=== PATIENT | female | born 1940 | race Caucasian/White ===

== ENCOUNTER 2020-04-11 11:02 | Inpatient (IN) | payer MEDICARE, OTHER ==
[2020-04-11] MEDS ORDERED: IPRATROPIUM-ALBUTEROL 3 ML NEB INHALATION STA (11:22)
--- NOTE | 2020-04-11 11:27 | ED ---
General Adult HPI - General Chief complaint: Shortness of Breath Stated complaint: SOB Source: patient, EMS, RN notes reviewed, old records reviewed Mode of arrival: EMS Limitations: no limitations - History of Present Illness Initial comments: This is an 79-year-old female who presents emergency Department complaining of difficulty breathing at 3:00 this morning she states she continues to have difficulty breathing. Patient denies any other symptoms at this time. Patient denies any fever chills or cough. Patient denies chest pain or palpitations. Patient denies any lightheadedness or dizziness. Patient denies a previous history of any COPD or congestive heart failure. Patient states he has some swelling in her legs but she always has some always. Patient does not think it's worse than normal. Patient was placed on BiPAP on the way in and so we continued that when she came into the emergency department. Patient states otherwise she feels at her baseline. - Related Data Home Medications Medication Instructions Recorded Confirmed Allopurinol [Zyloprim] 300 mg PO DAILY 04/11/20 04/11/20 Aspirin [Adult Low Dose Aspirin EC] 81 mg PO DAILY 04/11/20 04/11/20 Ergocalciferol [Vitamin D2] 50,000 unit PO Q14D 04/11/20 04/11/20 Ferrous Sulfate [Feosol] 325 mg PO DAILY 04/11/20 04/11/20 Folic Acid 1 mg PO DAILY 04/11/20 04/11/20 Furosemide [Lasix] 20 mg PO BID 04/11/20 04/11/20 Gabapentin [Neurontin] 300 mg PO BID 04/11/20 04/11/20 Lisinopril [Zestril] 10 mg PO DAILY 04/11/20 04/11/20 Lisinopril [Zestril] 20 mg PO HS 04/11/20 04/11/20 Magnesium Oxide 400 mg PO TID 04/11/20 04/11/20 Potassium Chloride ER [K-Dur 10] 10 meq PO DAILY 04/11/20 04/11/20 Sodium Bicarbonate Tab 650 mg PO BID 04/11/20 04/11/20 amLODIPine [Norvasc] 5 mg PO DAILY 04/11/20 04/11/20 glipiZIDE XL [Glucotrol Xl] 10 mg PO AC-BRKFST 04/11/20 04/11/20 glipiZIDE [Glucotrol] 12.5 mg PO HS 04/11/20 04/11/20 Allergies Allergy/AdvReac Type Severity Reaction Status Date / Time No Known Allergies Allergy Verified 04/11/20 13:11 Review of Systems ROS Statement: Those systems with pertinent positive or pertinent negative responses have been documented in the HPI. ROS Other: All systems not noted in ROS Statement are negative. Past Medical History Past Medical History: Unable to Obtain History of Any Multi-Drug Resistant Organisms: None Reported Past Surgical History: Unable to Obtain Smoking Status: Unknown if ever smoked Past Alcohol Use History: None Reported Past Drug Use History: None Reported General Exam - General Exam Comments Initial Comments: GENERAL: Patient is well-developed and well-nourished. Patient is nontoxic and well- hydrated and is in mild distress. ENT: Neck is soft and supple. No significant lymphadenopathy is noted. Oropharynx is clear. Moist mucous membranes. Neck has full range of motion without eliciting any pain. EYES: The sclera were anicteric and conjunctiva were pink and moist. Extraocular movements were intact and pupils were equal round and reactive to light. Eyelids were unremarkable. PULMONARY: Unlabored respirations. Slight bilateral crackles in the bases and some expiratory wheezing. CARDIOVASCULAR: There is a regular rate and rhythm without any murmurs gallops or rubs. ABDOMEN: Soft and nontender with normal bowel sounds. No palpable organomegaly was noted. There is no palpable pulsatile mass. SKIN: Skin is clear with no lesions or rashes and otherwise unremarkable. NEUROLOGIC: Patient is alert and oriented x3. Cranial nerves II through XII are grossly intact. Motor and sensory are also intact. Normal speech, volume and content. Symmetrical smile. MUSCULOSKELETAL: Normal extremities with adequate strength and full range of motion. 1+ edema LYMPHATICS: No significant lymphadenopathy is noted PSYCHIATRIC: Normal psychiatric evaluation. Limitations: no limitations Course Vital Signs 04/11/20 04/11/20 04/11/20 11:03 11:07 11:17 Temperature 98.6 F Pulse Rate 98 90 Respiratory 42 H 33 H 42 H Rate Blood Pressure 186/80 157/67 O2 Sat by Pulse 92 L 93 L Oximetry 04/11/20 04/11/20 04/11/20 11:45 11:57 12:15 Temperature Pulse Rate 78 79 74 Respiratory 16 Rate Blood Pressure 159/69 O2 Sat by Pulse 97 Oximetry 04/11/20 04/11/20 04/11/20 14:06 14:14 14:58 Temperature Pulse Rate 71 Respiratory Rate Blood Pressure O2 Sat by Pulse 94 L 93 L 83 L Oximetry Medical Decision Making - Medical Decision Making EKG shows normal sinus rhythm at 85 bpm LA interval is 170 QRS is 92 QT interval 396 QTC is 471. Patient's EKG shows no ST segment elevation or depression CT shows no PE but it was a poor study. Patient's CT did show congestive heart.. Patient received nitroglycerin paste as well as Lasix. I spoke with Dr. Rick he accepted patient I wrote admitting orders I continued Lasix and Nitropaste on the floor. - Lab Data Result diagrams: 04/11/20 11:15 04/11/20 11:15 Lab Results 04/11/20 04/11/20 04/11/20 Range/Units 11:15 11:15 11:15 WBC 15.6 H (3.8-10.6) k/uL RBC 4.20 (3.80-5.40) m/uL Hgb 12.1 (11.4-16.0) gm/dL Hct 38.5 (34.0-46.0) % MCV 91.6 (80.0-100.0) fL MCH 28.7 (25.0-35.0) pg MCHC 31.3 (31.0-37.0) g/dL RDW 15.8 H (11.5-15.5) % Plt Count 226 (150-450) k/uL Neutrophils % 91 % Lymphocytes % 5 % Monocytes % 3 % Eosinophils % 1 % Basophils % 0 % Neutrophils # 14.2 H (1.3-7.7) k/uL Lymphocytes # 0.8 L (1.0-4.8) k/uL Monocytes # 0.4 (0-1.0) k/uL Eosinophils # 0.1 (0-0.7) k/uL Basophils # 0.0 (0-0.2) k/uL Hypochromasia Marked PT 10.3 (9.0-12.0) sec INR 1.0 (<1.2) APTT 21.8 L (22.0-30.0) sec D-Dimer 1.51 H (<0.60) mg/L FEU Sodium 140 (137-145) mmol/L Potassium 3.8 (3.5-5.1) mmol/L Chloride 108 H (98-107) mmol/L Carbon Dioxide 20 L (22-30) mmol/L Anion Gap 12 mmol/L BUN 21 H (7-17) mg/dL Creatinine 1.04 (0.52-1.04) mg/dL Est GFR (CKD-EPI)AfAm 59 (>60 ml/min/1.73 sqM) Est GFR (CKD-EPI)NonAf 51 (>60 ml/min/1.73 sqM) Glucose 264 H (74-99) mg/dL Plasma Lactic Acid Donny (0.7-2.0) mmol/L Calcium 9.1 (8.4-10.2) mg/dL Magnesium 2.0 (1.6-2.3) mg/dL Total Bilirubin 0.7 (0.2-1.3) mg/dL AST 32 (14-36) U/L ALT 17 (4-34) U/L Alkaline Phosphatase 86 (38-126) U/L Troponin I (0.000-0.034) ng/mL NT-Pro-B Natriuret Pep pg/mL Total Protein 7.4 (6.3-8.2) g/dL Albumin 4.1 (3.5-5.0) g/dL 04/11/20 04/11/20 04/11/20 Range/Units 11:15 11:15 11:15 WBC (3.8-10.6) k/uL RBC (3.80-5.40) m/uL Hgb (11.4-16.0) gm/dL Hct (34.0-46.0) % MCV (80.0-100.0) fL MCH (25.0-35.0) pg MCHC (31.0-37.0) g/dL RDW (11.5-15.5) % Plt Count (150-450) k/uL Neutrophils % % Lymphocytes % % Monocytes % % Eosinophils % % Basophils % % Neutrophils # (1.3-7.7) k/uL Lymphocytes # (1.0-4.8) k/uL Monocytes # (0-1.0) k/uL Eosinophils # (0-0.7) k/uL Basophils # (0-0.2) k/uL Hypochromasia PT (9.0-12.0) sec INR (<1.2) APTT (22.0-30.0) sec D-Dimer (<0.60) mg/L FEU Sodium (137-145) mmol/L Potassium (3.5-5.1) mmol/L Chloride (98-107) mmol/L Carbon Dioxide (22-30) mmol/L Anion Gap mmol/L BUN (7-17) mg/dL Creatinine (0.52-1.04) mg/dL Est GFR (CKD-EPI)AfAm (>60 ml/min/1.73 sqM) Est GFR (CKD-EPI)NonAf (>60 ml/min/1.73 sqM) Glucose (74-99) mg/dL Plasma Lactic Acid Donny 1.8 (0.7-2.0) mmol/L Calcium (8.4-10.2) mg/dL Magnesium (1.6-2.3) mg/dL Total Bilirubin (0.2-1.3) mg/dL AST (14-36) U/L ALT (4-34) U/L Alkaline Phosphatase (38-126) U/L Troponin I 0.059 H* (0.000-0.034) ng/mL NT-Pro-B Natriuret Pep 4400 pg/mL Total Protein (6.3-8.2) g/dL Albumin (3.5-5.0) g/dL Critical Care Time Critical Care Time: Yes Total Critical Care Time: 35 Disposition Clinical Impression: Acute pulmonary edema Disposition: ADMITTED IP TO THIS HOSP Referrals: Rodrigo Gann MD [Primary Care Provider] - 1-2 days Time of Disposition: 15:02
[2020-04-11 11:49] LABS: Basophils % (A) 0 %; Eosinophils # (A) 0.1 k/uL (0-0.7); Eosinophils % (A) 1 %; HCT 38.5 % (34.0-46.0); HGB 12.1 gm/dL (11.4-16.0); Hypochromasia Marked; Lymphocytes # (A) 0.8 k/uL (1.0-4.8); Lymphocytes % (A) 5 %; MCH 28.7 pg (25.0-35.0); MCHC 31.3 g/dL (31.0-37.0); MCV 91.6 fL (80.0-100.0); Mean Platelet Volume 9.9; Monocytes # (A) 0.4 k/uL (0-1.0); Monocytes % (A) 3 %; Neutrophils # (A) 14.2 k/uL (1.3-7.7); Neutrophils % (A) 91 %; Platelet Count 226 k/uL (150-450); RDW 15.8 % (11.5-15.5); WBC 15.6 k/uL (3.8-10.6)
--- NOTE | 2020-04-11 11:50 | XR ---
EXAMINATION TYPE: XR chest 1V DATE OF EXAM: 04/11/2020 COMPARISON: NONE HISTORY: Difficulty in breathing. TECHNIQUE: Single frontal view of the chest is obtained. FINDINGS: The osseous structures are intact. Cardiomegaly is present. There are small bilateral pleu ral effusions. There is increased alveolar and interstitial opacities bilateral mid to lower lungs. N o pneumothorax noted bilaterally IMPRESSION: Would favor CHF exacerbation as there is cardiomegaly with small bilateral pleural effus ions and suspected mild alveolar and interstitial edema, correlate clinically. Underlying bibasilar a cute atelectasis and/or infiltrate noted.
[2020-04-11] MEDS ORDERED: FUROSEMIDE 10 MG/ML 4 ML VIAL IV STA (11:57)
[2020-04-11] MEDS ORDERED: NITROGLYCERIN OINT 1 INCH/GM PACKET TOPICAL STA (11:57)
[2020-04-11 12:05] LABS: Albumin 4.1 g/dL (3.5-5.0); Calcium 9.1 mg/dL (8.4-10.2); Total Bilirubin 0.7 mg/dL (0.2-1.3); Total Protein 7.4 g/dL (6.3-8.2)
[2020-04-11 12:10] LABS: Potassium 3.8 mmol/L (3.5-5.1)
[2020-04-11 12:20] LABS: Partial Thromboplastin Time 21.8 sec (22.0-30.0); Prothrombin Time 10.3 sec (9.0-12.0)
[2020-04-11 12:25] LABS: D-Dimer 1.51 mg/L FEU (<0.60)
--- NOTE | 2020-04-11 14:48 | CT ---
EXAMINATION TYPE: CT chest angio for PE DATE OF EXAM: 04/11/2020 COMPARISON: Chest x-ray earlier today HISTORY: Shortness of breath. CT DLP: 536.2 mGycm. Automated Exposure Control for Dose Reduction was Utilized. CONTRAST: CTA scan of the thorax is performed with IV Contrast, patient injected with 100 mL of Isovue 370, pul monary embolism protocol. MIP Images are created on CT scanner and reviewed. FINDINGS: Exam noticed suboptimal as there was significant respiratory motion artifact degradation. P atient unable to hold breath. LUNGS: There is confirmation of small bilateral pleural effusions with associated compressive atelect asis in the bases. There is central groundglass opacity seen bilaterally. No pneumothorax seen bilate rally. MEDIASTINUM: There is a suboptimal study with heterogeneity and near equal contrast the right and lef t heart systems but no convincing CT evidence for acute pulmonary embolism. There are no greater jerman n 1 cm hilar or mediastinal lymph nodes. No significant pericardial effusion is seen. Cardiomegaly is present. Coronary artery calcification is seen which is noted marked underlying coronary artery di sease. Satisfactory enhancement of the aorta without aneurysm or dissection. OTHER: Scattered calcifications throughout the spleen. Marked fatty-replaced atrophy of the visualize d pancreas. Partial visualization of suspected exophytic cystic lesions in the left kidney. IMPRESSION: Suboptimal study without acute pulmonary embolism. Findings consistent with CHF exacerbat ion fell present as there is cardiomegaly with small bilateral pleural effusions and [id number] central alveolar edema appreciated bilaterally.
[2020-04-11] MEDS: HEPARIN SODIUM,PORCINE 5,000 UNIT/ML 1 ML VIAL SQ SCH ×2 (17:10→23:09)
[2020-04-11 17:11] LABS: Glucose,Whole Blood 167 mg/dL (75-99)
[2020-04-11] MEDS: MAGNESIUM OXIDE 400 MG TAB PO SCH ×2 (17:11→20:56)
[2020-04-11] MEDS: NITROGLYCERIN OINT 1 INCH/GM PACKET TOPICAL SCH ×2 (17:22→20:56)
[2020-04-11 20:39] LABS: Glucose,Whole Blood 229 mg/dL (75-99)
[2020-04-11] MEDS: SODIUM BICARBONATE TAB 650 MG TAB PO SCH (20:56)
[2020-04-11] MEDS: FUROSEMIDE 10 MG/ML 4 ML VIAL IV SCH (20:57)
[2020-04-11] MEDS ORDERED: LISINOPRIL 20 MG TAB PO SCH (21:00)
[2020-04-11 22:03] LABS: Appearance,Urine Clear (Clear); Bilirubin,Urine Negative (Negative); Blood,Urine Negative (Negative); Color,Urine Light Yellow; Glucose,Urine (UA) Negative (Negative); Ketones,Urine Negative (Negative); Leukocyte Esterase,Urine Negative (Negative); Nitrite,Urine Negative (Negative); Protein,Urine Negative (Negative); Specific Gravity,Urine 1.019 (1.001-1.035); Urobilinogen,Urine <2.0 mg/dL (<2.0)
--- NOTE | 2020-04-11 22:40 | P.HPIM ---
History of Present Illness H&P Date: 04/11/20 Chief Complaint: CARLOS Patient is a 79-year-old female with a known history of hypertension, hyperlipidemia, diabetes type 2 [id number], diabetic peripheral neuropathy and osteoarthritis presents to ER with the complaints of worsening shortness of breath started around 3 PM today afternoon. Denied any chest pain. No nausea vomiting or abdominal pain or diarrhea. Denied any recent illnesses. Patient has been having bilateral lower extremity edema. Patient noticed some increasing leg swelling this morning. Was also having some dry cough. No fever no chills. Patient presented to ER with her daughter. Patient was initially tachycardic and tachypneic and hypoxic requiring BiPAP in the ER. Blood pressure was 186/80 on admission.. Chest x-ray showed CHF exacerbation as there is cardiomegaly with small bilateral pleural effusions and suspected mild alveolar and interstitial edema. Correlate clinically. Underlying bibasilar acute atelectasis or infiltrate noted. Patient denies any history of COVID-19 viral exposure. Patient was found to have elevated d-dimer level. CT angiogram of the chest was showed suboptimal study without acute pulmonary embolism. Findings consistent with CHF exacerbation. Laboratory data showed WC 15.6, hemoglobin 12.1, RDW 15.8, absolute lymphocyte count 0.8 Sodium 140, potassium 3.8, chloride 108, BUN 21 creatinine 1.04 Blood sugar is 264 Liver enzymes are not elevated Troponin 0 0.059 and BNP 4400 Urinalysis showed negative for infection. Past Medical History Past Medical History: Diabetes Mellitus, Eye Disorder, Hyperlipidemia, Hypertension, Renal Disease Additional Past Medical History / Comment(s): NIDDM type II, neuropathy bilateral feet, diabetic retinopathy with eye injections, pt recently found to had L lung nodules-being monitored, pt has one underdeveloped kidney, bilateral lower leg/pedal edema, recent R hip pain, bronchitis, diarrhea with certain foods which has increased lately. History of Any Multi-Drug Resistant Organisms: None Reported Past Surgical History: Appendectomy, Cholecystectomy, Hernia Repair, Hysterectomy Additional Past Surgical History / Comment(s): abdominal hernia repair. Past Anesthesia/Blood Transfusion Reactions: No Reported Reaction Smoking Status: Never smoker - Past Family History Father Family Medical History: Congestive Heart Failure (CHF) Mother Family Medical History: Congestive Heart Failure (CHF) Medications and Allergies Home Medications Medication Instructions Recorded Confirmed Type Allopurinol [Zyloprim] 300 mg PO DAILY 04/11/20 04/11/20 History Aspirin [Adult Low Dose Aspirin EC] 81 mg PO DAILY 04/11/20 04/11/20 History Ergocalciferol [Vitamin D2] 50,000 unit PO Q14D 04/11/20 04/11/20 History Ferrous Sulfate [Feosol] 325 mg PO DAILY 04/11/20 04/11/20 History Folic Acid 1 mg PO DAILY 04/11/20 04/11/20 History Furosemide [Lasix] 20 mg PO BID 04/11/20 04/11/20 History Gabapentin [Neurontin] 300 mg PO BID 04/11/20 04/11/20 History Lisinopril [Zestril] 10 mg PO DAILY 04/11/20 04/11/20 History Lisinopril [Zestril] 20 mg PO HS 04/11/20 04/11/20 History Magnesium Oxide 400 mg PO TID 04/11/20 04/11/20 History Potassium Chloride ER [K-Dur 10] 10 meq PO DAILY 04/11/20 04/11/20 History Sodium Bicarbonate Tab 650 mg PO BID 04/11/20 04/11/20 History amLODIPine [Norvasc] 5 mg PO DAILY 04/11/20 04/11/20 History glipiZIDE XL [Glucotrol Xl] 10 mg PO AC-BRKFST 04/11/20 04/11/20 History glipiZIDE [Glucotrol] 12.5 mg PO HS 04/11/20 04/11/20 History Allergies Allergy/AdvReac Type Severity Reaction Status Date / Time No Known Allergies Allergy Verified 04/11/20 13:11 Physical Exam Vitals: Vital Signs Temp Pulse Pulse Resp BP BP Pulse Ox 04/11/20 20:00 98.3 F 76 17 168/63 89 L 04/11/20 16:55 97.5 F L 89 18 140/86 90 L 04/11/20 16:14 69 16 155/91 97 04/11/20 15:13 73 27 H 187/86 95 04/11/20 14:58 83 L 04/11/20 14:14 71 93 L 04/11/20 14:06 94 L 04/11/20 12:15 74 16 159/69 97 04/11/20 11:57 79 04/11/20 11:45 78 04/11/20 11:17 42 H 04/11/20 11:07 90 33 H 157/67 93 L 04/11/20 11:03 98.6 F 98 42 H 186/80 92 L Intake and Output 04/11/20 04/11/20 04/11/20 06:59 14:59 22:59 Intake Total 240 Output Total 200 Balance 40 Intake: Oral 240 Output: Urine 200 Other: Voiding Method Bedside Commode # Voids 1 # Bowel Movements 1 Weight 81.647 kg 81.647 kg Results CBC & Chem 7: 04/11/20 11:15 04/11/20 11:15 Labs: Abnormal Lab Results - Last 24 Hours (Table) 04/11/20 04/11/20 04/11/20 Range/Units 11:15 11:15 11:15 WBC 15.6 H (3.8-10.6) k/uL RDW 15.8 H (11.5-15.5) % Neutrophils # 14.2 H (1.3-7.7) k/uL Lymphocytes # 0.8 L (1.0-4.8) k/uL APTT 21.8 L (22.0-30.0) sec D-Dimer 1.51 H (<0.60) mg/L FEU Chloride 108 H (98-107) mmol/L Carbon Dioxide 20 L (22-30) mmol/L BUN 21 H (7-17) mg/dL Glucose 264 H (74-99) mg/dL POC Glucose (mg/dL) (75-99) mg/dL Troponin I (0.000-0.034) ng/mL 04/11/20 04/11/20 04/11/20 Range/Units 11:15 16:50 20:37 WBC (3.8-10.6) k/uL RDW (11.5-15.5) % Neutrophils # (1.3-7.7) k/uL Lymphocytes # (1.0-4.8) k/uL APTT (22.0-30.0) sec D-Dimer (<0.60) mg/L FEU Chloride (98-107) mmol/L Carbon Dioxide (22-30) mmol/L BUN (7-17) mg/dL Glucose (74-99) mg/dL POC Glucose (mg/dL) 167 H 229 H (75-99) mg/dL Troponin I 0.059 H* (0.000-0.034) ng/mL Thrombosis Risk Factor Assmnt - Choose All That Apply Any of the Below Risk Factors Present?: Yes Each Factor Represents 1 point: Heart failure (<1month), Obesity (BMI >25), Swollen legs (current) Other Risk Factors: Yes Each Risk Factor Represents 3 Points: Age 75 years or older Other congenital or acquired thrombophilia - If yes, enter type in comment: No Thrombosis Risk Factor Assessment Total Risk Factor Score: 6 Thrombosis Risk Factor Assessment Level: High Risk Assessment and Plan Assessment: Acute CHF with evidence of interstitial edema, leg swelling and elevated BNP level. Acute hypoxic respiratory failure secondary to CHF Elevated troponin level likely due to CHF Cardiomegaly Hypertensive urgency Diabetes type 2 [id number] Diabetic neuropathy and retinopathy Recently patient was found to have left lung nodules. Being monitored. Underdevelopment of kidney. Osteoarthritis Hyperlipidemia Obesity with BMI 30.0 Leukocytosis likely reactive. Rule out infection. Elevated d-dimer level with no evidence of pulmonary embolism. Hyperglycemia with uncontrolled diabetes type 2 DVT prophylaxis with heparin subcu Patient will be continued on IV Lasix 40 mg every 8 hourly. Will start on aspirin, metoprolol. Continue with lisinopril as per home dose. Norvasc is on hold. Continue with insulin sliding scale and follow-up closely. Cardiology was consulted. 2D echocardiogram. Further recommendations based on clinical course. Monitor renal function. Time with Patient: Greater than 30
[2020-04-12] MEDS: FUROSEMIDE 10 MG/ML 4 ML VIAL IV SCH ×3 (05:11→20:49)
[2020-04-12 06:09] LABS: Glucose,Whole Blood 117 mg/dL (75-99)
[2020-04-12] MEDS: INSULIN ASPART (NovoLOG) 100 UNIT/ML VIAL SQ SCH ×4 (06:22→21:20)
[2020-04-12 07:41] LABS: Basophils % (A) 0 %; Eosinophils # (A) 0.1 k/uL (0-0.7); Eosinophils % (A) 1 %; HCT 34.7 % (34.0-46.0); HGB 10.6 gm/dL (11.4-16.0); Hypochromasia Slight; Lymphocytes # (A) 1.1 k/uL (1.0-4.8); Lymphocytes % (A) 11 %; MCH 27.5 pg (25.0-35.0); MCHC 30.4 g/dL (31.0-37.0); MCV 90.2 fL (80.0-100.0); Monocytes # (A) 0.7 k/uL (0-1.0); Monocytes % (A) 7 %; Neutrophils # (A) 7.9 k/uL (1.3-7.7); Neutrophils % (A) 79 %; Platelet Count 208 k/uL (150-450); RBC 3.85 m/uL (3.80-5.40); RDW 15.9 % (11.5-15.5); WBC 10.1 k/uL (3.8-10.6)
[2020-04-12 08:33] LABS: Calcium 8.8 mg/dL (8.4-10.2); Potassium 3.1 mmol/L (3.5-5.1)
[2020-04-12] MEDS ORDERED: LISINOPRIL 10 MG TAB PO SCH ×2 (09:00→21:00)
[2020-04-12] MEDS ORDERED: amLODIPine 5 MG TAB PO SCH (09:00)
[2020-04-12] MEDS: NITROGLYCERIN OINT 1 INCH/GM PACKET TOPICAL SCH (09:44)
[2020-04-12] MEDS: ALLOPURINOL 300 MG TAB PO SCH (09:57)
[2020-04-12] MEDS: hydrALAZINE HCL 50 MG TAB PO SCH ×2 (09:57→20:49)
[2020-04-12] MEDS: POTASSIUM CHLORIDE ER 10 MEQ TAB.ER.PRT PO SCH (09:57)
[2020-04-12] MEDS: LISINOPRIL 10 MG TAB PO SCH ×2 (09:57→20:49)
[2020-04-12] MEDS: METOPROLOL TARTRATE 25 MG TAB PO SCH ×2 (09:57→20:49)
[2020-04-12] MEDS: ATORVASTATIN 40 MG TAB PO SCH (09:57)
[2020-04-12] MEDS: SODIUM BICARBONATE TAB 650 MG TAB PO SCH ×2 (09:58→20:49)
[2020-04-12] MEDS: ISOSORBIDE MONONITRATE ER 60 MG TAB.ER.24H PO SCH (09:58)
[2020-04-12] MEDS: ASPIRIN 81 MG PO SCH (09:58)
[2020-04-12] MEDS: HEPARIN SODIUM,PORCINE 5,000 UNIT/ML 1 ML VIAL SQ SCH ×2 (09:58→15:19)
[2020-04-12] MEDS: FOLIC ACID 1 MG TAB PO SCH (09:58)
[2020-04-12] MEDS: MAGNESIUM OXIDE 400 MG TAB PO SCH ×3 (09:58→20:49)
[2020-04-12] MEDS ORDERED: Potassium Replacement Protocol 1 EACH MISC MISCELLANE PRN (11:03)
[2020-04-12 11:29] LABS: Glucose,Whole Blood 229 mg/dL (75-99)
--- NOTE | 2020-04-12 12:09 | CONS ---
CONSULTATION Mrs. Brothers is an 79-year-old female who presented with symptoms of dyspnea. She has a history of chronic dyspnea on exertion, but much worse yesterday, not associated with any discomfort. She had fatigue. She has some peripheral edema, came into the emergency room subsequently admitted with CHF. According to the patient, she has no prior history of documented coronary artery disease or CHF. She has a lung nodule that has been followed by Dr. Gann. She has no dizziness, palpitation. No chest pressure. She has no history of PND or orthopnea. Her current paroxysmal for diabetes, hypertension. Her lipid profile is not available. MEDICATION: At home include glipizide 12.5 mg daily, lisinopril 20 mg daily, aspirin, amlodipine 5 mg daily, allopurinol, Lasix 20 mg twice a day, potassium, iron, and sodium bicarb. REVIEW OF SYSTEMS: RESPIRATORY SYSTEM: She has dyspnea on exertion. No recent wheezing or cough. No history of documented obstructive lung disease. GI SYSTEM: No recent GI bleeding, no peptic ulcer disease. SYSTEM: No dysuria, hematuria. She has a history of renal disease and has been followed by Dr. Elena. NERVOUS SYSTEM: No history of stroke or seizure. PHYSICAL EXAMINATION: She is an 79-year-old female, alert, oriented, in no apparent distress. Blood pressure running in the 180-150 with a heart rate in the 80s. HEAD: Normocephalic. EYES: Sclerae nonicteric. NECK: Good upstroke, no bruit. LUNGS: With a few crackles at the bases. HEART: Regular rate and rhythm. S1, S2. No S3 with systolic murmur, ejection type. No diastolic murmur, no rub. ABDOMEN: Soft, nontender, positive bowel sounds, no organomegaly. EXTREMITIES: +1 edema. LAB DATA: Revealed a hemoglobin of 12.1, BUN and creatinine of 21 and 1.04. NT proBNP of 4400. Troponin of 0.059 and 1.39. Her BUN and creatinine today are 23 and 1.23, potassium 3.1. Her EKG revealed a sinus mechanism with left ventricular hypertrophy, left axis deviation, poor R-wave progression, nonspecific ST-T wave changes. Her chest x-ray is consistent with congestive heart failure. IMPRESSION: 1. Acute episode of congestive heart failure on top of chronic dyspnea on exertion. 2. Probable non ST-segment elevation myocardial infarction. 3. Chronic kidney disease. 4. Hypertension. 5. Hyperlipidemia. 6. Diabetes mellitus. 7. History of lung nodule. RECOMMENDATION: From the cardiac standpoint, I will adjust her medication to optimize her blood pressure control. Will continue IV heparin. She is on IV Lasix. Will follow her renal function closely. I will obtain echocardiogram with Doppler. The patient may require coronary angiography but will await the results for testing and depending on that, further recommendation will be made. Thank you for this consult. Will follow with you. MMODL / IJN: [id number] /
[2020-04-12 12:26] LABS: Hemoglobin A1C 6.2 % (4.0-6.0)
[2020-04-12] MEDS: POTASSIUM CHLORIDE ER 20 MEQ TAB.ER PO SCH ×2 (12:31→15:18)
[2020-04-12 15:44] VITALS: BMI 40.2
[2020-04-12 16:43] LABS: Glucose,Whole Blood 148 mg/dL (75-99)
[2020-04-12 20:53] LABS: Glucose,Whole Blood 130 mg/dL (75-99)
[2020-04-13] MEDS: HEPARIN SODIUM,PORCINE 5,000 UNIT/ML 1 ML VIAL SQ SCH ×4 (01:17→22:37)
[2020-04-13] MEDS: FUROSEMIDE 10 MG/ML 4 ML VIAL IV SCH ×2 (04:45→20:51)
[2020-04-13 06:30] LABS: Glucose,Whole Blood 164 mg/dL (75-99)
[2020-04-13] MEDS: INSULIN ASPART (NovoLOG) 100 UNIT/ML VIAL SQ SCH ×4 (06:47→20:50)
[2020-04-13 08:43] LABS: Calcium 9.4 mg/dL (8.4-10.2); Magnesium 2.1 mg/dL (1.6-2.3); Potassium 3.4 mmol/L (3.5-5.1)
[2020-04-13] MEDS: ASPIRIN 81 MG PO SCH (10:24)
[2020-04-13] MEDS: POTASSIUM CHLORIDE ER 10 MEQ TAB.ER.PRT PO SCH (10:24)
[2020-04-13] MEDS: ALLOPURINOL 300 MG TAB PO SCH (10:24)
[2020-04-13] MEDS: ATORVASTATIN 40 MG TAB PO SCH (10:24)
[2020-04-13] MEDS: CARVEDILOL 12.5 MG TAB PO SCH ×2 (10:24→15:50)
[2020-04-13] MEDS: FOLIC ACID 1 MG TAB PO SCH (10:24)
[2020-04-13] MEDS: SODIUM BICARBONATE TAB 650 MG TAB PO SCH ×2 (10:24→20:49)
[2020-04-13] MEDS: ISOSORBIDE MONONITRATE ER 60 MG TAB.ER.24H PO SCH (10:24)
[2020-04-13] MEDS: LISINOPRIL 10 MG TAB PO SCH ×2 (10:25→20:50)
[2020-04-13] MEDS: METOPROLOL TARTRATE 25 MG TAB PO SCH (10:25)
[2020-04-13] MEDS: MAGNESIUM OXIDE 400 MG TAB PO SCH ×3 (10:25→20:50)
[2020-04-13] MEDS: hydrALAZINE HCL 50 MG TAB PO SCH ×3 (10:26→22:37)
[2020-04-13] MEDS: POTASSIUM CHLORIDE ER 20 MEQ TAB.ER PO SCH ×2 (10:36→12:06)
--- NOTE | 2020-04-13 10:51 | PN ---
PROGRESS NOTE Mrs. Brothers is an 79-year-old female who presented with an acute episode of dyspnea and had evidence to suggest congestive heart failure. She continues to be dyspneic today, but feeling slightly better. She denies any chest pain, no palpitation. She denies any nausea. She continues to be at this point on aspirin once a day, Lipitor 40 mg daily, Lasix 40 mg IV q.8 hours, isosorbide mononitrate 60 mg daily, Zestril 10 mg twice a day, metoprolol tartrate 25 mg twice a day, and sodium bicarb. PHYSICAL EXAMINATION: Blood pressure running in the 160s with a heart rate in 70s. LUNGS: A few crackles at the bases. HEART: Regular rate and rhythm, S1, S2. No S3 with systolic murmur, no diastolic murmur, no rub. ABDOMEN: Soft, obese, nontender. EXTREMITIES: Trace to 1+ edema. LAB DATA: Revealed BUN and creatinine 25 and 1.29, potassium 3.4. IMPRESSION: 1. Symptoms of congestive heart failure. Her systolic function is unknown. 2. Hypertension. 3. Worsening renal function, could be related to the diuresis. 4. Probable non ST-segment elevation myocardial infarction. 5. History of diabetes. 6. Hyperlipidemia. 7. History of lung nodules. RECOMMENDATION: I will cut down the dose of her IV Lasix. I will add hydralazine and nitrate to her regimen. I will review the results for echocardiogram and follow her renal function. Patient would require coronary angiography but the timing depends on her progress and her symptoms and her renal function. I have discussed with her those findings and she is in full understanding and agreement. MMODL / IJN: [id number] /
[2020-04-13 11:33] LABS: Glucose,Whole Blood 180 mg/dL (75-99)
[2020-04-13 14:43] LABS: HCT 35.7 % (34.0-46.0); Hypochromasia Marked; MCH 28.8 pg (25.0-35.0); MCHC 30.8 g/dL (31.0-37.0); MCV 93.6 fL (80.0-100.0); Mean Platelet Volume 12.5; RBC 3.82 m/uL (3.80-5.40); RDW 15.9 % (11.5-15.5); WBC 11.3 k/uL (3.8-10.6)
[2020-04-13 15:10] LABS: Platelet Count 217 k/uL (150-450)
[2020-04-13 16:35] LABS: Glucose,Whole Blood 164 mg/dL (75-99)
[2020-04-13 20:45] LABS: Glucose,Whole Blood 192 mg/dL (75-99)
[2020-04-14 06:34] LABS: Glucose,Whole Blood 130 mg/dL (75-99)
[2020-04-14] MEDS: INSULIN ASPART (NovoLOG) 100 UNIT/ML VIAL SQ SCH ×4 (06:34→20:32)
[2020-04-14] MEDS: CARVEDILOL 12.5 MG TAB PO SCH ×2 (06:35→17:25)
[2020-04-14 07:17] LABS: Calcium 8.8 mg/dL (8.4-10.2); Potassium 3.6 mmol/L (3.5-5.1)
[2020-04-14] MEDS ORDERED: POTASSIUM CHLORIDE ER 20 MEQ TAB.ER PO SCH (08:00)
[2020-04-14] MEDS: HEPARIN SODIUM,PORCINE 5,000 UNIT/ML 1 ML VIAL SQ SCH ×3 (08:47→22:53)
[2020-04-14] MEDS: FUROSEMIDE 10 MG/ML 4 ML VIAL IV SCH (08:47)
[2020-04-14] MEDS: SODIUM BICARBONATE TAB 650 MG TAB PO SCH ×2 (08:49→20:32)
[2020-04-14] MEDS: FOLIC ACID 1 MG TAB PO SCH (08:50)
[2020-04-14] MEDS: ATORVASTATIN 40 MG TAB PO SCH (08:50)
[2020-04-14] MEDS: MAGNESIUM OXIDE 400 MG TAB PO SCH ×3 (08:50→20:32)
[2020-04-14] MEDS: LISINOPRIL 10 MG TAB PO SCH ×2 (08:50→20:32)
[2020-04-14] MEDS: POTASSIUM CHLORIDE ER 10 MEQ TAB.ER.PRT PO SCH (08:50)
[2020-04-14] MEDS: hydrALAZINE HCL 50 MG TAB PO SCH ×3 (08:50→20:32)
[2020-04-14] MEDS: ASPIRIN 81 MG PO SCH (08:50)
[2020-04-14] MEDS: ISOSORBIDE MONONITRATE ER 60 MG TAB.ER.24H PO SCH (08:50)
[2020-04-14] MEDS: ALLOPURINOL 300 MG TAB PO SCH (08:50)
--- NOTE | 2020-04-14 11:09 | P.PN ---
Subjective Progress Note Date: 04/12/20 Patient is a 79-year-old female with a known history of hypertension, hyperlipidemia, diabetes type 2 [id number], diabetic peripheral neuropathy and osteoarthritis presents to ER with the complaints of worsening shortness of breath started around 3 PM today afternoon. Denied any chest pain. No nausea vomiting or abdominal pain or diarrhea. Denied any recent illnesses. Patient has been having bilateral lower extremity edema. Patient noticed some increasing leg swelling this morning. Was also having some dry cough. No fever no chills. Patient presented to ER with her daughter. Patient was initially tachycardic and tachypneic and hypoxic requiring BiPAP in the ER. Blood pressure was 186/80 on admission.. Chest x-ray showed CHF exacerbation as there is cardiomegaly with small b ilateral pleural effusions and suspected mild alveolar and interstitial edema. Correlate clinically. Underlying bibasilar acute atelectasis or infiltrate noted. Patient denies any history of COVID-19 viral exposure. Patient was found to have elevated d-dimer level. CT angiogram of the chest was showed suboptimal study without acute pulmonary embolism. Findings consistent with CHF exacerbation. Laboratory data showed WC 15.6, hemoglobin 12.1, RDW 15.8, absolute lymphocyte count 0.8 Sodium 140, potassium 3.8, chloride 108, BUN 21 creatinine 1.04 Blood sugar is 264 Liver enzymes are not elevated Troponin 0 0.059 and BNP 4400 Urinalysis showed negative for infection. 04/12/2020 Patient is currently lying in the bed comfortable. Currently on oxygen via nasal cannula 2 L. Breathing status is better. Patient is being continued on IV diuresis. 2-D echo cardiac was ordered. Cardiology is planning for cardiac catheterization evening and further workup. Patient denied any, soft chest pain. No nausea vomiting or abdominal pain or diarrhea. No fever no chills. No cough or production. current medications reviewed. Objective - Vital Signs Vital signs: Vital Signs Temp 98.6 F 04/12/20 15:14 Pulse 66 04/12/20 15:16 Resp 20 04/12/20 15:16 BP 163/69 04/12/20 15:14 Pulse Ox 96 04/12/20 15:14 Intake & Output 04/11/20 04/12/20 04/12/20 18:59 06:59 18:59 Intake Total 240 1040 Output Total 200 1300 Balance 40 -1300 1040 Weight 81.647 kg 90.4 kg Intake: IV 20 Invasive Line 1 20 Oral 240 1020 Output: Urine 200 1300 Other: Voiding Method Bedside Commode Bedside Commode Bedside Commode # Voids 1 3 # Bowel Movements 1 1 - Exam PHYSICAL EXAMINATION: Patient is lying in the bed comfortably, no acute distress, awake alert and oriented.. HEENT: Normocephalic. Neck is supple. Pupils reactive. Nostrils clear. Oral cavity is moist. Ears reveal no drainage. Neck reveals no JVD, carotid bruits, or thyromegaly. CHEST EXAMINATION: Trachea is central. Symmetrical expansion. Minimal basilar crackles. No wheezing no rhonchi Lung gutierrez clear to auscultation and percussion. CARDIAC: Normal S1, S2 with no gallops. No murmurs ABDOMEN: Soft. Bowel sounds normal. No organomegaly. No abdominal bruits. Extremities: Trace bilateral pedal reveal no edema. No clubbing or cyanosis Neurologically awake, alert, oriented x3 with well-coordinated movements. No focal deficits noted Skin: No rash or skin lesions. Psychiatric: Coperative. Nonsuicidal Musculoskeletal: No joint swelling or deformity. Normal range of motion. - Labs CBC & Chem 7: 04/13/20 07:36 04/14/20 06:29 Labs: Abnormal Lab Results - Last 24 Hours (Table) 04/11/20 04/11/20 04/12/20 Range/Units 16:50 20:37 06:07 Hgb (11.4-16.0) gm/dL MCHC (31.0-37.0) g/dL RDW (11.5-15.5) % Neutrophils # (1.3-7.7) k/uL Potassium (3.5-5.1) mmol/L Chloride (98-107) mmol/L BUN (7-17) mg/dL Creatinine (0.52-1.04) mg/dL Glucose (74-99) mg/dL POC Glucose (mg/dL) 167 H 229 H 117 H (75-99) mg/dL Hemoglobin A1c (4.0-6.0) % Troponin I (0.000-0.034) ng/mL LDL Cholesterol, Calc (0-99) mg/dL 04/12/20 04/12/20 04/12/20 Range/Units 07:17 07:17 07:17 Hgb 10.6 L (11.4-16.0) gm/dL MCHC 30.4 L (31.0-37.0) g/dL RDW 15.9 H (11.5-15.5) % Neutrophils # 7.9 H (1.3-7.7) k/uL Potassium 3.1 L (3.5-5.1) mmol/L Chloride 108 H (98-107) mmol/L BUN 23 H (7-17) mg/dL Creatinine 1.23 H (0.52-1.04) mg/dL Glucose 126 H (74-99) mg/dL POC Glucose (mg/dL) (75-99) mg/dL Hemoglobin A1c (4.0-6.0) % Troponin I 1.390 H* (0.000-0.034) ng/mL LDL Cholesterol, Calc 120 H (0-99) mg/dL 04/12/20 04/12/20 Range/Units 07:17 11:27 Hgb (11.4-16.0) gm/dL MCHC (31.0-37.0) g/dL RDW (11.5-15.5) % Neutrophils # (1.3-7.7) k/uL Potassium (3.5-5.1) mmol/L Chloride (98-107) mmol/L BUN (7-17) mg/dL Creatinine (0.52-1.04) mg/dL Glucose (74-99) mg/dL POC Glucose (mg/dL) 229 H (75-99) mg/dL Hemoglobin A1c 6.2 H (4.0-6.0) % Troponin I (0.000-0.034) ng/mL LDL Cholesterol, Calc (0-99) mg/dL Assessment and Plan Assessment: Acute CHF with evidence of interstitial edema, leg swelling and elevated BNP level. Acute hypoxic respiratory failure secondary to CHF Elevated troponin level likely due to CHF. Possible non-ST elevated CO Cardiomegaly Hypertensive urgency Diabetes type 2 [id number] Diabetic neuropathy and retinopathy Recently patient was found to have left lung nodules. Being monitored. Underdevelopment of kidney. Osteoarthritis Hyperlipidemia Obesity with BMI 30.0 Leukocytosis likely reactive. Rule out infection. Elevated d-dimer level with no evidence of pulmonary embolism. Hyperglycemia with uncontrolled diabetes type 2 DVT prophylaxis with heparin subcu Patient will be continued on IV Lasix 40 mg every 8 hourly. Started on aspirin, metoprolol. Continue with lisinopril as per home dose. Continue with insulin sliding scale and follow-up closely. Cardiology was consulted. 2D echocardiogram was ordered. Further recommendations based on clinical course. Monitor renal function. Cardiac standpoint Patient depending on further workup. Time with Patient: Greater than 30
[2020-04-14 12:24] LABS: Glucose,Whole Blood 164 mg/dL (75-99)
--- NOTE | 2020-04-14 14:52 | P.PN ---
Subjective Progress Note Date: 04/14/20 History of present illness: This is an 79-year-old female. She presented with acute episode of dyspnea and evidence of heart failure. She has been on Lasix 40 mg IV every 8 hours as well as Imdur 60 mg daily, lisinopril 10 mg twice daily, metoprolol tartrate 25 mg twice daily, sodium bicarb, Lipitor. Hydralazine and Imdur were added yesterday. Patient has had significant worsening of her creatinine overnight to a creatinine of 1.85, BUN of 33. C. difficile toxin came back negative. The patient has been afebrile, blood pressure 125/70, pulse ox 94% on room air, heart rate in the 50s and 60s. Echocardiogram report is pending Physical examination: Gen: This is an 79-year-old female. Patient is resting comfortably in no acute distress. HEENT: Head is atraumatic, normocephalic. Pupils equal, round. Sclerae is anicteric. LUNGS: Clear to auscultation. No wheezes or rhonchi. No intercostal retractions. HEART: Regular rate and rhythm. Systolic murmur. ABDOMEN: Soft. Bowel sounds are present. No masses. No tenderness. EXTREMITIES: Trace pedal edema. No calf tenderness. NEUROLOGICAL: Patient is awake, alert and oriented x3. Cranial nerves 2 through 12 are grossly intact. Assessment: Acute heart failure, most likely systolic, awaiting echocardiogram Hypertension Acute kidney injury with chronic kidney disease stage III Probable non-ST elevated myocardial infarction Diabetes mellitus type 2 Hyperlipidemia History of lung nodules Plan: Transition Lasix to 40 mg oral twice daily Continue aspirin 81 mg daily, Lipitor 40 mg daily, Coreg 12.5 mg twice daily, hy dralazine 50 mg 3 times daily, Imdur 60 mg daily, lisinopril 10 mg twice daily Continue sodium bicarb Repeat BMP in the morning Obtain echocardiogram report Coronary angiograph V depending on her symptoms and renal function. Nurse practitioner note has been reviewed, I agree with documented findings and plan of care. Patient was seen and examined. Objective - Vital Signs Vital signs: Vital Signs Temp 97.3 F L 04/14/20 08:00 Pulse 54 L 04/14/20 08:00 Resp 18 04/14/20 08:00 BP 124/54 04/14/20 08:00 Pulse Ox 97 04/14/20 08:00 Intake & Output 04/13/20 04/14/20 04/14/20 18:59 06:59 18:59 Intake Total 1076 20 120 Output Total 250 1150 Balance 826 -1130 120 Weight 89 kg Intake: IV 10 20 Invasive Line 2 10 20 Oral 1066 120 Output: Urine 250 1150 Other: Voiding Method Diaper Diaper Diaper # Voids 1 2 # Bowel Movements 1 2 - Labs CBC & Chem 7: 04/13/20 07:36 04/14/20 06:29 Labs: Abnormal Lab Results - Last 24 Hours (Table) 04/13/20 04/13/20 04/13/20 Range/Units 07:36 16:32 20:44 WBC 11.3 H (3.8-10.6) k/uL Hgb 11.0 L (11.4-16.0) gm/dL MCHC 30.8 L (31.0-37.0) g/dL RDW 15.9 H (11.5-15.5) % BUN (7-17) mg/dL Creatinine (0.52-1.04) mg/dL Glucose (74-99) mg/dL POC Glucose (mg/dL) 164 H 192 H (75-99) mg/dL 04/14/20 04/14/20 Range/Units 06:29 06:33 WBC (3.8-10.6) k/uL Hgb (11.4-16.0) gm/dL MCHC (31.0-37.0) g/dL RDW (11.5-15.5) % BUN 33 H (7-17) mg/dL Creatinine 1.85 H (0.52-1.04) mg/dL Glucose 115 H (74-99) mg/dL POC Glucose (mg/dL) 130 H (75-99) mg/dL Microbiology - Last 24 Hours (Table) 04/11/20 13:18 Blood Culture - Preliminary Blood No Growth after 48 hours
[2020-04-14] MEDS: FUROSEMIDE 40 MG TAB PO SCH (15:47)
[2020-04-14 16:46] LABS: Glucose,Whole Blood 181 mg/dL (75-99)
[2020-04-14 20:24] LABS: Glucose,Whole Blood 202 mg/dL (75-99)
--- NOTE | 2020-04-14 23:34 | P.PN ---
Subjective Progress Note Date: 04/13/20 Principal diagnosis: Acute CHF Possibly acute non-ST NE Patient is a 79-year-old female with a known history of hypertension, hyperlipidemia, diabetes type 2 [id number], diabetic peripheral neuropathy and osteoarthritis presents to ER with the complaints of worsening shortness of breath started around 3 PM today afternoon. Denied any chest pain. No nausea vomiting or abdominal pain or diarrhea. Denied any recent illnesses. Patient has been having bilateral lower extremity edema. Patient noticed some increasing leg swelling this morning. Was also having some dry cough. No fever no chills. Patient presented to ER with her daughter. Patient was initially tachycardic and tachypneic and hypoxic requiring BiPAP in the ER. Blood pressure was 186/80 on admission.. Chest x-ray showed CHF exacerbation as there is cardiomegaly with small bilateral pleural effusions and suspected mild alveolar and interstitial edema. Correlate clinically. Underlying bibasilar acute atelectasis or infiltrate noted. Patient denies any history of COVID-19 viral exposure. Patient was found to have elevated d-dimer level. CT angiogram of the chest was showed suboptimal study without acute pulmonary embolism. Findings consistent with CHF exacerbation. Laboratory data showed WC 15.6, hemoglobin 12.1, RDW 15.8, absolute lymphocyte count 0.8 Sodium 140, potassium 3.8, chloride 108, BUN 21 creatinine 1.04 Blood sugar is 264 Liver enzymes are not elevated Troponin 0 0.059 and BNP 4400 Urinalysis showed negative for infection. 04/12/2020 Patient is currently lying in the bed comfortable. Currently on oxygen via nasal cannula 2 L. Breathing status is better. Patient is being continued on IV diuresis. 2-D echo cardiac was ordered. Cardiology is planning for cardiac catheterization evening and further workup. Patient denied any, soft chest pain. No nausea vomiting or abdominal pain or diarrhea. No fever no chills. No cough or production. 04/13/2020 Patient states that her breathing is better. Oxygen via nasal cannula is being tapered off to room air. No complaints of chest pain. Slightly increased creatinine level two 1.29 today. Cardiology is considering cardiac catheterization. 2D echocardiogram report pending. Cardiology on board. Denies any chest pain. No fever no chills. No cough or sputum reduction. current medications reviewed. Objective - Vital Signs Vital signs: Vital Signs Temp 98.0 F 04/13/20 20:00 Pulse 68 04/13/20 20:00 Resp 18 04/13/20 20:00 BP 138/57 04/13/20 20:00 Pulse Ox 95 04/13/20 20:00 Intake & Output 04/13/20 04/13/20 04/14/20 06:59 18:59 06:59 Intake Total 1076 10 Output Total 1500 250 250 Balance -1500 826 -240 Weight 89.5 kg Intake: IV 10 10 Invasive Line 2 10 10 Oral 1066 Output: Urine 800 250 250 Urine/Stool Mix 700 Other: Voiding Method Diaper Diaper Diaper # Voids 1 # Bowel Movements 1 - Exam PHYSICAL EXAMINATION: Patient is lying in the bed comfortably, no acute distress, awake alert and oriented.. HEENT: Normocephalic. Neck is supple. Pupils reactive. Nostrils clear. Oral cavity is moist. Ears reveal no drainage. Neck reveals no JVD, carotid bruits, or thyromegaly. CHEST EXAMINATION: Trachea is central. Symmetrical expansion. Minimal basilar crackles. No wheezing no rhonchi Lung gutierrez clear to auscultation and percussion. CARDIAC: Normal S1, S2 with no gallops. No murmurs ABDOMEN: Soft. Bowel sounds normal. No organomegaly. No abdominal bruits. Extremities: no edema. No clubbing or cyanosis Neurologically awake, alert, oriented x3 with well-coordinated movements. No focal deficits noted Skin: No rash or skin lesions. Psychiatric: Coperative. Nonsuicidal Musculoskeletal: No joint swelling or deformity. Normal range of motion. - Labs CBC & Chem 7: 04/13/20 07:36 04/14/20 06:29 Labs: Abnormal Lab Results - Last 24 Hours (Table) 04/13/20 04/13/20 04/13/20 Range/Units 06:27 07:36 07:36 WBC 11.3 H (3.8-10.6) k/uL Hgb 11.0 L (11.4-16.0) gm/dL MCHC 30.8 L (31.0-37.0) g/dL RDW 15.9 H (11.5-15.5) % Potassium 3.4 L (3.5-5.1) mmol/L BUN 25 H (7-17) mg/dL Creatinine 1.29 H (0.52-1.04) mg/dL Glucose 137 H (74-99) mg/dL POC Glucose (mg/dL) 164 H (75-99) mg/dL 04/13/20 04/13/20 04/13/20 Range/Units 11:31 16:32 20:44 WBC (3.8-10.6) k/uL Hgb (11.4-16.0) gm/dL MCHC (31.0-37.0) g/dL RDW (11.5-15.5) % Potassium (3.5-5.1) mmol/L BUN (7-17) mg/dL Creatinine (0.52-1.04) mg/dL Glucose (74-99) mg/dL POC Glucose (mg/dL) 180 H 164 H 192 H (75-99) mg/dL Microbiology - Last 24 Hours (Table) 04/11/20 13:18 Blood Culture - Preliminary Blood No Growth after 48 hours Assessment and Plan Assessment: Acute CHF with evidence of interstitial edema, leg swelling and elevated BNP level. Acute hypoxic respiratory failure secondary to CHF Elevated troponin level likely due to CHF. Possible non-ST elevated NE Cardiomegaly Hypertensive urgency Diabetes type 2 [id number] Diabetic neuropathy and retinopathy Recently patient was found to have left lung nodules. Being monitored. Underdevelopment of kidney. Osteoarthritis Hyperlipidemia Obesity with BMI 30.0 Leukocytosis likely reactive. Rule out infection. Elevated d-dimer level with no evidence of pulmonary embolism. Hyperglycemia with uncontrolled diabetes type 2 DVT prophylaxis with heparin subcu Patient will be continued on IV Lasix 40 mg every 12 hourly. Started on aspirin, metoprolol. Continue with lisinopril as per home dose. Continue with insulin sliding scale and follow-up closely. Cardiology is following. 2D echocardiogram was ordered. Further recommendations based on clinical course. Monitor renal function. Cardiac standpoint Patient depending on further workup. Time with Patient: Greater than 30
[2020-04-15 06:08] LABS: Glucose,Whole Blood 133 mg/dL (75-99)
[2020-04-15] MEDS: INSULIN ASPART (NovoLOG) 100 UNIT/ML VIAL SQ SCH ×4 (06:17→21:02)
[2020-04-15 07:18] LABS: Calcium 8.8 mg/dL (8.4-10.2); Potassium 3.6 mmol/L (3.5-5.1)
[2020-04-15] MEDS: ASPIRIN 81 MG PO SCH (10:01)
[2020-04-15] MEDS: SODIUM BICARBONATE TAB 650 MG TAB PO SCH ×2 (10:01→21:02)
[2020-04-15] MEDS: HEPARIN SODIUM,PORCINE 5,000 UNIT/ML 1 ML VIAL SQ SCH ×3 (10:01→23:42)
[2020-04-15] MEDS: MAGNESIUM OXIDE 400 MG TAB PO SCH ×3 (10:01→21:01)
[2020-04-15] MEDS: FOLIC ACID 1 MG TAB PO SCH (10:02)
[2020-04-15] MEDS: POTASSIUM CHLORIDE ER 10 MEQ TAB.ER.PRT PO SCH (10:02)
[2020-04-15] MEDS: ATORVASTATIN 40 MG TAB PO SCH (10:02)
[2020-04-15] MEDS: LISINOPRIL 10 MG TAB PO SCH (10:02)
[2020-04-15] MEDS: ALLOPURINOL 300 MG TAB PO SCH (10:02)
[2020-04-15] MEDS: FUROSEMIDE 40 MG TAB PO SCH (10:02)
[2020-04-15] MEDS: hydrALAZINE HCL 50 MG TAB PO SCH ×3 (10:02→21:01)
[2020-04-15] MEDS: ISOSORBIDE MONONITRATE ER 60 MG TAB.ER.24H PO SCH (10:03)
[2020-04-15 11:49] LABS: Glucose,Whole Blood 174 mg/dL (75-99)
--- NOTE | 2020-04-15 13:02 | P.PN ---
Subjective Progress Note Date: 04/15/20 History of present illness: This is an 79-year-old female. She presented with acute episode of dyspnea and evidence of heart failure. She has been on Lasix 40 mg IV every 8 hours as well as Imdur 60 mg daily, lisinopril 10 mg twice daily, metoprolol tartrate 25 mg twice daily, sodium bicarb, Lipitor. Hydralazine and Imdur were added yesterday. Patient has had significant worsening of her creatinine overnight to a creatinine of 1.85, BUN of 33. C. difficile toxin came back negative. The patient has been afebrile, blood pressure 125/70, pulse ox 94% on room air, heart rate in the 50s and 60s. Echocardiogram report is pending. 04/15: Patient states that she is feeling well today and is anxious to go home. Her heart rate has been in the 50s and 60s, blood pressure 144/56, pulse ox 97% on room air. The patient is having worsening of her renal function with BUN of 40 and creatinine of 2.4 to and Lasix and lisinopril will be held for now. Physical examination: Gen: This is an 79-year-old female. Patient is resting comfortably in no acute distress. HEENT: Head is atraumatic, normocephalic. Pupils equal, round. Sclerae is anicteric. LUNGS: Clear to auscultation. No wheezes or rhonchi. No intercostal retractions. HEART: Regular rate and rhythm. Systolic murmur. ABDOMEN: Soft. Bowel sounds are present. No masses. No tenderness. EXTREMITIES: Trace pedal edema. No calf tenderness. NEUROLOGICAL: Patient is awake, alert and oriented x3. Cranial nerves 2 through 12 are grossly intact. Assessment: Acute heart failure, most likely systolic, awaiting echocardiogram Hypertension Acute kidney injury with chronic kidney disease stage III Probable non-ST elevated myocardial infarction Diabetes mellitus type 2 Hyperlipidemia History of lung nodules Plan: Discontinue Lasix and lisinopril due to acute kidney injury and worsening renal function Continue aspirin 81 mg daily, Lipitor 40 mg daily, Coreg 12.5 mg twice daily, Imdur 60 mg daily Continue sodium bicarb Repeat BMP in the morning Obtain echocardiogram report Coronary angiography depending on her symptoms and renal function most likely to be performed at a later time Recommend nephrology consult Further recommendations to follow based upon clinical course. Nurse practitioner note has been reviewed, I agree with documented findings and plan of care. Patient was seen and examined. Objective - Vital Signs Vital signs: Vital Signs Temp 98.0 F 04/15/20 04:00 Pulse 61 04/15/20 04:00 Resp 16 04/15/20 04:00 BP 142/59 04/15/20 04:00 Pulse Ox 95 04/15/20 04:00 Intake & Output 04/14/20 04/15/20 04/15/20 18:59 06:59 18:59 Intake Total 540 100 Output Total 100 Balance 540 -100 100 Weight 89.4 kg Intake: Oral 540 100 Output: Urine 100 Other: Voiding Method Diaper Diaper # Voids 0 1 # Bowel Movements 1 1 - Labs CBC & Chem 7: 04/13/20 07:36 04/15/20 06:13 Labs: Abnormal Lab Results - Last 24 Hours (Table) 04/14/20 04/14/20 04/14/20 Range/Units 12:22 16:44 20:23 BUN (7-17) mg/dL Creatinine (0.52-1.04) mg/dL Glucose (74-99) mg/dL POC Glucose (mg/dL) 164 H 181 H 202 H (75-99) mg/dL 04/15/20 04/15/20 Range/Units 06:07 06:13 BUN 40 H (7-17) mg/dL Creatinine 2.42 H (0.52-1.04) mg/dL Glucose 114 H (74-99) mg/dL POC Glucose (mg/dL) 133 H (75-99) mg/dL Microbiology - Last 24 Hours (Table) 04/11/20 13:18 Blood Culture - Preliminary Blood No Growth after 72 hours
[2020-04-15 16:33] LABS: Glucose,Whole Blood 150 mg/dL (75-99)
[2020-04-15 20:54] LABS: Glucose,Whole Blood 192 mg/dL (75-99)
--- NOTE | 2020-04-16 01:28 | P.PN ---
Subjective Progress Note Date: 04/14/20 Principal diagnosis: Acute CHF Possibly acute non-ST PR Patient is a 79-year-old female with a known history of hypertension, hyperlipidemia, diabetes type 2 [id number], diabetic peripheral neuropathy and osteoarthritis presents to ER with the complaints of worsening shortness of breath started around 3 PM today afternoon. Denied any chest pain. No nausea vomiting or abdominal pain or diarrhea. Denied any recent illnesses. Patient has been having bilateral lower extremity edema. Patient noticed some increasing leg swelling this morning. Was also having some dry cough. No fever no chills. Patient presented to ER with her daughter. Patient was initially tachycardic and tachypneic and hypoxic requiring BiPAP in the ER. Blood pressure was 186/80 on admission.. Chest x-ray showed CHF exacerbation as there is cardiomegaly with small bilateral pleural effusions and suspected mild alveolar and interstitial edema. Correlate clinically. Underlying bibasilar acute atelectasis or infiltrate noted. Patient denies any history of COVID-19 viral exposure. Patient was found to have elevated d-dimer level. CT angiogram of the chest was showed suboptimal study without acute pulmonary embolism. Findings consistent with CHF exacerbation. Laboratory data showed WC 15.6, hemoglobin 12.1, RDW 15.8, absolute lymphocyte count 0.8 Sodium 140, potassium 3.8, chloride 108, BUN 21 creatinine 1.04 Blood sugar is 264 Liver enzymes are not elevated Troponin 0 0.059 and BNP 4400 Urinalysis showed negative for infection. 04/12/2020 Patient is currently lying in the bed comfortable. Currently on oxygen via nasal cannula 2 L. Breathing status is better. Patient is being continued on IV diuresis. 2-D echo cardiac was ordered. Cardiology is planning for cardiac catheterization evening and further workup. Patient denied any, soft chest pain. No nausea vomiting or abdominal pain or diarrhea. No fever no chills. No cough or production. 04/13/2020 Patient states that her breathing is better. Oxygen via nasal cannula is being tapered off to room air. No complaints of chest pain. Slightly increased creatinine level two 1.29 today. Cardiology is considering cardiac catheterization. 2D echocardiogram report pending. Cardiology on board. Denies any chest pain. No fever no chills. No cough or sputum reduction. 04/14/2020 Patient is currently sitting in the chair comfortably. Denied any complaints of chest pain or shortness of breath. No nausea vomiting abdominal pain or diarrhea. Tolerating oral diet. Patient is being continued on IV diuresis is to be changed to Lasix by mouth. Cardiology is following. Creatinine level increased to 1.85 today. Patient does have good urine output otherwise. Denies any complaints of dysuria or hematuria. current medications reviewed. Objective - Vital Signs Vital signs: Vital Signs Temp 97 F L 04/14/20 16:00 Pulse 57 L 04/14/20 16:00 Resp 18 04/14/20 16:00 BP 120/61 04/14/20 16:00 Pulse Ox 95 04/14/20 16:10 Intake & Output 04/13/20 04/14/20 04/14/20 18:59 06:59 18:59 Intake Total 1076 20 540 Output Total 250 1150 Balance 826 -1130 540 Weight 89 kg Intake: IV 10 20 Invasive Line 2 10 20 Oral 1066 540 Output: Urine 250 1150 Other: Voiding Method Diaper Diaper Diaper # Voids 1 0 # Bowel Movements 1 1 - Exam PHYSICAL EXAMINATION: Patient is lying in the bed comfortably, no acute distress, awake alert and oriented.. HEENT: Normocephalic. Neck is supple. Pupils reactive. Nostrils clear. Oral cavity is moist. Ears reveal no drainage. Neck reveals no JVD, carotid bruits, or thyromegaly. CHEST EXAMINATION: Trachea is central. Symmetrical expansion. Minimal basilar crackles. No wheezing no rhonchi Lung gutierrez clear to auscultation and percussion. CARDIAC: Normal S1, S2 with no gallops. No murmurs ABDOMEN: Soft. Bowel sounds normal. No organomegaly. No abdominal bruits. Extremities: no edema. No clubbing or cyanosis Neurologically awake, alert, oriented x3 with well-coordinated movements. No focal deficits noted Skin: No rash or skin lesions. Psychiatric: Coperative. Nonsuicidal Musculoskeletal: No joint swelling or deformity. Normal range of motion. - Labs CBC & Chem 7: 04/13/20 07:36 04/15/20 06:13 Labs: Abnormal Lab Results - Last 24 Hours (Table) 04/13/20 04/14/20 04/14/20 Range/Units 20:44 06:29 06:33 BUN 33 H (7-17) mg/dL Creatinine 1.85 H (0.52-1.04) mg/dL Glucose 115 H (74-99) mg/dL POC Glucose (mg/dL) 192 H 130 H (75-99) mg/dL 04/14/20 04/14/20 Range/Units 12:22 16:44 BUN (7-17) mg/dL Creatinine (0.52-1.04) mg/dL Glucose (74-99) mg/dL POC Glucose (mg/dL) 164 H 181 H (75-99) mg/dL Microbiology - Last 24 Hours (Table) 04/11/20 13:18 Blood Culture - Preliminary Blood No Growth after 72 hours Assessment and Plan Assessment: Acute CHF with evidence of interstitial edema, leg swelling and elevated BNP level. Acute hypoxic respiratory failure secondary to CHF Elevated troponin level likely due to CHF. Possible non-ST elevated PR Acute kidney injury likely due to diuresis Cardiomegaly Hypertensive urgency Diabetes type 2 [id number] Diabetic neuropathy and retinopathy Recently patient was found to have left lung nodules. Being monitored. Underdevelopment of kidney. Osteoarthritis Hyperlipidemia Obesity with BMI 30.0 Leukocytosis likely reactive. Rule out infection. Elevated d-dimer level with no evidence of pulmonary embolism. Hyperglycemia with uncontrolled diabetes type 2 DVT prophylaxis with heparin subcu Patient will be continued on IV Lasix 40 mg every 12 hourly. Started on aspirin, metoprolol. Continue with lisinopril as per home dose. Continue with insulin sliding scale and follow-up closely. Cardiology is following. 2D echocardiogram was ordered. Further recommendations based on clinical course. Monitor renal function. Cardiac standpoint Patient depending on further workup. Time with Patient: Greater than 30
--- NOTE | 2020-04-16 01:32 | P.PN ---
Subjective Progress Note Date: 04/15/20 Principal diagnosis: Acute CHF Possibly acute non-ST ND Patient is a 79-year-old female with a known history of hypertension, hyperlipidemia, diabetes type 2 [id number], diabetic peripheral neuropathy and osteoarthritis presents to ER with the complaints of worsening shortness of breath started around 3 PM today afternoon. Denied any chest pain. No nausea vomiting or abdominal pain or diarrhea. Denied any recent illnesses. Patient has been having bilateral lower extremity edema. Patient noticed some increasing leg swelling this morning. Was also having some dry cough. No fever no chills. Patient presented to ER with her daughter. Patient was initially tachycardic and tachypneic and hypoxic requiring BiPAP in the ER. Blood pressure was 186/80 on admission.. Chest x-ray showed CHF exacerbation as there is cardiomegaly with small bilateral pleural effusions and suspected mild alveolar and interstitial edema. Correlate clinically. Underlying bibasilar acute atelectasis or infiltrate noted. Patient denies any history of COVID-19 viral exposure. Patient was found to have elevated d-dimer level. CT angiogram of the chest was showed suboptimal study without acute pulmonary embolism. Findings consistent with CHF exacerbation. Laboratory data showed WC 15.6, hemoglobin 12.1, RDW 15.8, absolute lymphocyte count 0.8 Sodium 140, potassium 3.8, chloride 108, BUN 21 creatinine 1.04 Blood sugar is 264 Liver enzymes are not elevated Troponin 0 0.059 and BNP 4400 Urinalysis showed negative for infection. 04/12/2020 Patient is currently lying in the bed comfortable. Currently on oxygen via nasal cannula 2 L. Breathing status is better. Patient is being continued on IV diuresis. 2-D echo cardiac was ordered. Cardiology is planning for cardiac catheterization evening and further workup. Patient denied any, soft chest pain. No nausea vomiting or abdominal pain or diarrhea. No fever no chills. No cough or production. 04/13/2020 Patient states that her breathing is better. Oxygen via nasal cannula is being tapered off to room air. No complaints of chest pain. Slightly increased creatinine level two 1.29 today. Cardiology is considering cardiac catheterization. 2D echocardiogram report pending. Cardiology on board. Denies any chest pain. No fever no chills. No cough or sputum reduction. 04/14/2020 Patient is currently sitting in the chair comfortably. Denied any complaints of chest pain or shortness of breath. No nausea vomiting abdominal pain or diarrhea. Tolerating oral diet. Patient is being continued on IV diuresis is to be changed to Lasix by mouth. Cardiology is following. Creatinine level increased to 1.85 today. Patient does have good urine output otherwise. Denies any complaints of dysuria or hematuria. 04/15/2020 Patient is currently sitting in the chair comfortably. Awake alert and oriented x3. Denies any complaints of chest pain or shortness of breath. Saturating well on room air. Creatinine level increased to 2.42 today. Lasix has been discontinued. Monitor renal function tomorrow. Cardiology is following. 2D echocardiogram report is still pending. Blood pressure is fairly stable. No other acute overnight issues. Patient is tolerating oral diet. current medications reviewed. Objective - Vital Signs Vital signs: Vital Signs Temp 97.8 F 04/15/20 08:00 Pulse 63 04/15/20 16:00 Resp 16 04/15/20 04:00 BP 154/67 04/15/20 16:00 Pulse Ox 93 L 04/15/20 16:00 Intake & Output 04/15/20 04/15/20 04/16/20 06:59 18:59 06:59 Intake Total 370 Output Total 100 Balance -100 370 Weight 89.4 kg Intake: Oral 370 Output: Urine 100 Other: Voiding Method Diaper Diaper # Voids 5 # Bowel Movements 5 - Exam PHYSICAL EXAMINATION: Patient is lying in the bed comfortably, no acute distress, awake alert and oriented.. HEENT: Normocephalic. Neck is supple. Pupils reactive. Nostrils clear. Oral cavity is moist. Ears reveal no drainage. Neck reveals no JVD, carotid bruits, or thyromegaly. CHEST EXAMINATION: Trachea is central. Symmetrical expansion. no crackles. No wheezing no rhonchi Lung gutierrez clear to auscultation and percussion. CARDIAC: Normal S1, S2 with no gallops. No murmurs ABDOMEN: Soft. Bowel sounds normal. No organomegaly. No abdominal bruits. Extremities: no edema. No clubbing or cyanosis Neurologically awake, alert, oriented x3 with well-coordinated movements. No focal deficits noted Skin: No rash or skin lesions. Psychiatric: Coperative. Nonsuicidal Musculoskeletal: No joint swelling or deformity. Normal range of motion. - Labs CBC & Chem 7: 04/13/20 07:36 04/15/20 06:13 Labs: Abnormal Lab Results - Last 24 Hours (Table) 04/15/20 04/15/20 04/15/20 Range/Units 06:07 06:13 11:47 BUN 40 H (7-17) mg/dL Creatinine 2.42 H (0.52-1.04) mg/dL Glucose 114 H (74-99) mg/dL POC Glucose (mg/dL) 133 H 174 H (75-99) mg/dL 04/15/20 04/15/20 Range/Units 16:32 20:53 BUN (7-17) mg/dL Creatinine (0.52-1.04) mg/dL Glucose (74-99) mg/dL POC Glucose (mg/dL) 150 H 192 H (75-99) mg/dL Microbiology - Last 24 Hours (Table) 04/11/20 13:18 Blood Culture - Preliminary Blood No Growth after 96 hours Assessment and Plan Assessment: Acute CHF with evidence of interstitial edema, leg swelling and elevated BNP level. Acute hypoxic respiratory failure secondary to CHF Elevated troponin level likely due to CHF. Possible non-ST elevated ND Acute kidney injury likely due to diuresis Cardiomegaly Hypertensive urgency Diabetes type 2 [id number] Diabetic neuropathy and retinopathy Recently patient was found to have left lung nodules. Being monitored. Underdevelopment of kidney. Osteoarthritis Hyperlipidemia Obesity with BMI 30.0 Leukocytosis likely reactive. Rule out infection. Elevated d-dimer level with no evidence of pulmonary embolism. Hyperglycemia with uncontrolled diabetes type 2 DVT prophylaxis with heparin subcu Patient was on IV Lasix changed to by mouth. Currently Lasix has been discontinued due to worsening renal function. Will hold lisinopril as well. Started on aspirin, metoprolol. Continue with insulin sliding scale and follow-up closely. Cardiology is following. 2D echocardiogram was ordered. Further recommendations based on clinical course. Monitor renal function. Cardiac standpoint Patient depending on further workup. Time with Patient: Greater than 30
[2020-04-16 06:01] LABS: Glucose,Whole Blood 144 mg/dL (75-99)
[2020-04-16] MEDS: INSULIN ASPART (NovoLOG) 100 UNIT/ML VIAL SQ SCH ×2 (06:31→13:29)
[2020-04-16 06:43] LABS: Basophils # (A) 0.1 k/uL (0-0.2); Basophils % (A) 1 %; Eosinophils # (A) 0.5 k/uL (0-0.7); Eosinophils % (A) 7 %; HCT 33.8 % (34.0-46.0); HGB 10.4 gm/dL (11.4-16.0); Hypochromasia Marked; Lymphocytes # (A) 1.2 k/uL (1.0-4.8); Lymphocytes % (A) 16 %; MCH 30.1 pg (25.0-35.0); MCHC 30.9 g/dL (31.0-37.0); MCV 97.4 fL (80.0-100.0); Mean Platelet Volume 9.8; Monocytes # (A) 0.7 k/uL (0-1.0); Monocytes % (A) 10 %; Neutrophils # (A) 4.8 k/uL (1.3-7.7); Neutrophils % (A) 65 %; Platelet Count 215 k/uL (150-450); RBC 3.47 m/uL (3.80-5.40); RDW 14.8 % (11.5-15.5); WBC 7.4 k/uL (3.8-10.6)
[2020-04-16 06:48] LABS: Calcium 8.6 mg/dL (8.4-10.2); Potassium 3.5 mmol/L (3.5-5.1)
[2020-04-16] MEDS: HEPARIN SODIUM,PORCINE 5,000 UNIT/ML 1 ML VIAL SQ SCH (08:20)
[2020-04-16] MEDS: ASPIRIN 81 MG PO SCH (08:20)
[2020-04-16] MEDS: ATORVASTATIN 40 MG TAB PO SCH (08:20)
[2020-04-16] MEDS: ISOSORBIDE MONONITRATE ER 60 MG TAB.ER.24H PO SCH (08:20)
[2020-04-16] MEDS: SODIUM BICARBONATE TAB 650 MG TAB PO SCH (08:20)
[2020-04-16] MEDS: hydrALAZINE HCL 50 MG TAB PO SCH (08:20)
[2020-04-16] MEDS: MAGNESIUM OXIDE 400 MG TAB PO SCH (08:20)
[2020-04-16] MEDS: FOLIC ACID 1 MG TAB PO SCH (08:20)
[2020-04-16] MEDS: ALLOPURINOL 300 MG TAB PO SCH (08:20)
[2020-04-16 08:39] VITALS: RESP 18
--- NOTE | 2020-04-16 10:50 | P.PN ---
Subjective From the records: Patient is a 79-year-old female with a known history of hypertension, hyperlipidemia, diabetes type 2 [id number], diabetic peripheral neuropathy and osteoarthritis presents to ER with the complaints of worsening shortness of breath started around 3 PM today afternoon. Denied any chest pain. No nausea vomiting or abdominal pain or diarrhea. Denied any recent illnesses. Patient has been having bilateral lower extremity edema. Patient noticed some increasing leg swelling this morning. Was also having some dry cough. No fever no chills. Patient presented to ER with her daughter. Patient was initially tachycardic and tachypneic and hypoxic requiring BiPAP in the ER. Blood pressure was 186/80 on admission.. Chest x-ray showed CHF exacerbation as there is cardiomegaly with small bilateral pleural effusions and suspected mild alveolar and interstitial edema. Correlate clinically. Underlying bibasilar acute atelectasis or infiltrate noted. Patient denies any history of COVID-19 viral exposure. Patient was found to have elevated d-dimer level. CT angiogram of the chest was showed suboptimal study without acute pulmonary embolism. Findings consistent with CHF exacerbation. Laboratory data showed WC 15.6, hemoglobin 12.1, RDW 15.8, absolute lymphocyte count 0.8 Sodium 140, potassium 3.8, chloride 108, BUN 21 creatinine 1.04 Blood sugar is 264 Liver enzymes are not elevated Troponin 0 0.059 and BNP 4400 Urinalysis showed negative for infection. 04/12/2020 Patient is currently lying in the bed comfortable. Currently on oxygen via nasal cannula 2 L. Breathing status is better. Patient is being continued on IV diuresis. 2-D echo cardiac was ordered. Cardiology is planning for cardiac catheterization evening and further workup. Patient denied any, soft chest pain. No nausea vomiting or abdominal pain or diarrhea. No fever no chills. No cough or production. 04/13/2020 Patient states that her breathing is better. Oxygen via nasal cannula is being tapered off to room air. No complaints of chest pain. Slightly increased creatinine level two 1.29 today. Cardiology is considering cardiac catheterization. 2D echocardiogram report pending. Cardiology on board. Denies any chest pain. No fever no chills. No cough or sputum reduction. 04/14/2020 Patient is currently sitting in the chair comfortably. Denied any complaints of chest pain or shortness of breath. No nausea vomiting abdominal pain or diarrhea. Tolerating oral diet. Patient is being continued on IV diuresis is to be changed to Lasix by mouth. Cardiology is following. Creatinine level inc reased to 1.85 today. Patient does have good urine output otherwise. Denies any complaints of dysuria or hematuria. 04/15/2020 Patient is currently sitting in the chair comfortably. Awake alert and oriented x3. Denies any complaints of chest pain or shortness of breath. Saturating well on room air. Creatinine level increased to 2.42 today. Lasix has been discontinued. Monitor renal function tomorrow. Cardiology is following. 2D echocardiogram report is still pending. Blood pressure is fairly stable. No other acute overnight issues. Patient is tolerating oral diet. subjective 04/16/2020 this is a pleasant 7 years old female who presented to the hospital on 04/11 for breathing difficulty. found to have acute CHF.also her blood pressure was on the high side on admission but now is better controlled at 141/99. Cardiology on the case Her Lasix and lisinopril were held for trending up creatinine from 1.0 to 2.4, currently her creatinine improved to 2.0. [employer] team was consulted. Objective - Vital Signs Vital signs: Vital Signs Temp 97.9 F 04/16/20 08:00 Pulse 59 L 04/16/20 08:00 Resp 18 04/16/20 08:00 BP 141/99 04/16/20 08:00 Pulse Ox 93 L 04/16/20 08:00 Intake & Output 04/15/20 04/16/20 04/16/20 18:59 06:59 18:59 Intake Total 370 570 90 Balance 370 570 90 Weight 89.6 kg Intake: Oral 370 570 90 Other: Voiding Method Diaper Bedside Commode Bedside Commode Diaper Diaper # Voids 5 1 2 # Bowel Movements 5 1 - Exam GENERAL: The patient is alert and oriented x3, not in any acute distress. obese HEENT: Pupils are round and equally reacting to light. EOMI. No scleral icterus. No conjunctival pallor. Normocephalic, atraumatic. No pharyngeal erythema. No thyromegaly. CARDIOVASCULAR: S1 and S2 present. No murmurs, rubs, or gallops. PULMONARY: Chest is clear to auscultation, no wheezing or crackles. ABDOMEN: Soft, nontender, nondistended, normoactive bowel sounds. No palpable organomegaly. MUSCULOSKELETAL: No joint swelling or deformity. EXTREMITIES: No cyanosis, clubbing, or pedal edema. NEUROLOGICAL: Gross neurological examination did not reveal any focal deficits. SKIN: No rashes. no petechiae. - Labs CBC & Chem 7: 04/16/20 06:19 04/16/20 06:19 Labs: Abnormal Lab Results - Last 24 Hours (Table) 04/15/20 04/15/20 04/15/20 Range/Units 11:47 16:32 20:53 RBC (3.80-5.40) m/uL Hgb (11.4-16.0) gm/dL Hct (34.0-46.0) % MCHC (31.0-37.0) g/dL BUN (7-17) mg/dL Creatinine (0.52-1.04) mg/dL Glucose (74-99) mg/dL POC Glucose (mg/dL) 174 H 150 H 192 H (75-99) mg/dL 04/16/20 04/16/20 04/16/20 Range/Units 06:00 06:19 06:19 RBC 3.47 L (3.80-5.40) m/uL Hgb 10.4 L (11.4-16.0) gm/dL Hct 33.8 L (34.0-46.0) % MCHC 30.9 L (31.0-37.0) g/dL BUN 43 H (7-17) mg/dL Creatinine 2.07 H (0.52-1.04) mg/dL Glucose 124 H (74-99) mg/dL POC Glucose (mg/dL) 144 H (75-99) mg/dL Microbiology - Last 24 Hours (Table) 04/11/20 13:18 Blood Culture - Preliminary Blood No Growth after 96 hours Assessment and Plan Assessment: Acute CHF with evidence of interstitial edema, leg swelling and elevated BNP level. Acute hypoxic respiratory failure secondary to CHF Elevated troponin level likely due to CHF. Possible non-ST elevated AR Acute kidney injury likely due to diuresis Cardiomegaly Hypertensive urgency Diabetes type 2 [id number]-[id number] Diabetic neuropathy and retinopathy Recently patient was found to have left lung nodules. Being monitored. Underdevelopment of kidney. Osteoarthritis Hyperlipidemia Obesity with BMI 30.0 Leukocytosis likely reactive. Rule out infection. Elevated d-dimer level with no evidence of pulmonary embolism. Hyperglycemia with uncontrolled diabetes type 2 Plan: this is a pleasant 7 years old female who presents with CHF and possible non-STEMI, her hospital course completed by acute kidney injury which is improving after holding diuresis. Cardiology and nephrology service on the case.monitored creatinine and vitals Labs and medication were reviewed.. Continue same treatment. Continue with symptomatic treatment. Resume home medication. Monitor lytes and vitals. DVT and GI prophylaxis. Further recommendations of the clinical course of the patient DVT prophylaxis: Subcutaneous heparin GI Prophylaxis: Pepcid PT/OT: Pending Prognosis is guarded
[2020-04-16 11:09] VITALS: BP 141/63; PULSE 69; TEMP 98.1
[2020-04-16 12:00] LABS: Glucose,Whole Blood 175 mg/dL (75-99)
--- NOTE | 2020-04-16 12:18 | P.NPCON ---
History of Present Illness - Reason for Consult acute renal failure, chronic renal failure - History of Present Illness Reason for consultation: Acute kidney injury on chronic kidney disease History of present illness: Patient is a 79-year-old female seen in renal consultation for acute kidney injury on chronic kidney disease. Patient has chronic kidney disease stage III with baseline creatinine in the range of 1.1-1.3 secondary to nephrosclerosis. patient presented to the hospital on April 11 shortness of breath. She states she was going for outpatient blood work but felt extremely weak and was barreto bsequently brought to the hospital by her family members. She underwent CT on April 11 which revealed small pleural effusions without evidence of PE. Patient received IV diuresis and was subsequently discontinued due to worsening kidney failure. Creatinine peaked at 2.4 to this admission and is 2.07 today. Patient feels much better. Currently denies any chest pain or shortness of breath. No edema. Denies use of nonsteroidals. Hemodynamically stable. Oral intake is good. No vomiting or diarrhea. Admits to good urine output. No hematuria or dysuria. Vital signs are stable. General: The patient appeared well nourished and normally developed. HEENT: Head exam is unremarkable. Neck is without jugular venous distension. LUNGS: Lungs are clear to auscultation and percussion. Breath sounds decreased. HEART: Rate and Rhythm are regular. ABDOMEN: soft, nontender. EXTREMITITES: No clubbing, cyanosis, or edema. Past Medical History Past Medical History: Diabetes Mellitus, Eye Disorder, Hyperlipidemia, Hypertension, Renal Disease Additional Past Medical History / Comment(s): NIDDM type II, neuropathy bilateral feet, diabetic retinopathy with eye injections, pt recently found to had L lung nodules-being monitored, pt has one underdeveloped kidney, bilateral lower leg/pedal edema, recent R hip pain, bronchitis, diarrhea with certain foods which has increased lately. History of Any Multi-Drug Resistant Organisms: None Reported Past Surgical History: Appendectomy, Cholecystectomy, Hernia Repair, Hysterectomy Additional Past Surgical History / Comment(s): abdominal hernia repair. Past Anesthesia/Blood Transfusion Reactions: No Reported Reaction Smoking Status: Never smoker - Past Family History Father Family Medical History: Congestive Heart Failure (CHF) Mother Family Medical History: Congestive Heart Failure (CHF) Medications and Allergies Home Medications Medication Instructions Recorded Confirmed Type Allopurinol [Zyloprim] 300 mg PO DAILY 04/11/20 04/11/20 History Aspirin [Adult Low Dose Aspirin EC] 81 mg PO DAILY 04/11/20 04/11/20 History Ergocalciferol [Vitamin D2] 50,000 unit PO Q14D 04/11/20 04/11/20 History Ferrous Sulfate [Feosol] 325 mg PO DAILY 04/11/20 04/11/20 History Folic Acid 1 mg PO DAILY 04/11/20 04/11/20 History Furosemide [Lasix] 20 mg PO BID 04/11/20 04/11/20 History Gabapentin [Neurontin] 300 mg PO BID 04/11/20 04/11/20 History Lisinopril [Zestril] 10 mg PO DAILY 04/11/20 04/11/20 History Lisinopril [Zestril] 20 mg PO HS 04/11/20 04/11/20 History Magnesium Oxide 400 mg PO TID 04/11/20 04/11/20 History Potassium Chloride ER [K-Dur 10] 10 meq PO DAILY 04/11/20 04/11/20 History Sodium Bicarbonate Tab 650 mg PO BID 04/11/20 04/11/20 History amLODIPine [Norvasc] 5 mg PO DAILY 04/11/20 04/11/20 History glipiZIDE XL [Glucotrol Xl] 10 mg PO AC-BRKFST 04/11/20 04/11/20 History glipiZIDE [Glucotrol] 12.5 mg PO HS 04/11/20 04/11/20 History Allergies Allergy/AdvReac Type Severity Reaction Status Date / Time No Known Allergies Allergy Verified 04/11/20 13:11 Physical Exam Vitals: Vital Signs Temp Pulse Resp BP Pulse Ox 04/16/20 11:06 98.1 F 69 18 141/63 93 L 04/16/20 08:00 97.9 F 59 L 18 141/99 93 L 04/16/20 04:00 97.7 F 64 16 172/72 98 04/16/20 00:00 97.6 F 63 16 139/63 95 04/15/20 20:00 97.9 F 58 L 16 95 04/15/20 16:00 63 154/67 93 L Intake and Output 04/15/20 04/16/20 04/16/20 22:59 06:59 14:59 Intake Total 150 450 90 Balance 150 450 90 Intake: Oral 150 450 90 Other: Voiding Method Bedside Commode Bedside Commode Bedside Commode Diaper Diaper Diaper # Voids 5 1 2 # Bowel Movements 5 1 Weight 89.6 kg Results - Lab Results Most recent lab results Calcium 8.6 mg/dL (8.4-10.2) 04/16/20 06:19 Magnesium 2.1 mg/dL (1.6-2.3) 04/13/20 07:36 04/16/20 06:19 04/16/20 06:19 Assessment and Plan Plan: assessment: 1. Acute kidney injury most to prerenal secondary to intravascular volume depletion from diuresis. Creatinine peaked at 2.4 to this admission and is 2.07 today. UA benign. 2. Chronic kidney disease stage III with baseline creatinine in the range of 1.1-1.3 secondary to nephrosclerosis. 3. History of CHF. Ejection fraction unknown. 4. Hypertension with chronic kidney disease. Stable. Plan: Continue to hold Lasix for now. I advised patient to resume Lasix 40 mg once daily starting April 18. She was also advised to monitor her weight closely at home and to call if gains more than 3 pounds or has worsening of edema and shortness of breath. Anticipate discharge soon. Repeat BMP and magnesium level 3-4 days postdischarge. Follow up outpatient in 1-2 weeks. Thank you for the consultation. I will continue to follow the patient with you during her hospital stay.
--- NOTE | 2020-04-16 14:38 | P.PN ---
Subjective Progress Note Date: 04/16/20 This is a pleasant 79-year-old female admitted to the hospital with symptoms of progressively worsening shortness of breath. She was diuresed with IV Lasix. Yesterday her IV Lasix and Aldactone were placed on hold because of worsening renal function. She was seen and examined this morning and is overall feeling well, her breathing is stable. Let pressure 140/60 with a heart rate of 60, 93% on room air. White blood cell count 7.4, hemoglobin 10.4, platelet count 2:15. Sodium 137, potassium 3.5, BUN 43, creatinine 2.0. Objective - Vital Signs Vital signs: Vital Signs Temp 98.1 F 04/16/20 11:06 Pulse 69 04/16/20 11:06 Resp 18 04/16/20 11:06 BP 141/63 04/16/20 11:06 Pulse Ox 93 L 04/16/20 11:06 Intake & Output 04/15/20 04/16/20 04/16/20 18:59 06:59 18:59 Intake Total 370 570 210 Balance 370 570 210 Weight 89.6 kg Intake: Oral 370 570 210 Other: Voiding Method Diaper Bedside Commode Bedside Commode Diaper Diaper # Voids 5 1 2 # Bowel Movements 5 1 - Exam Gen: This is an 79-year-old female. Patient is resting comfortably in no acute distress. HEENT: Head is atraumatic, normocephalic. Pupils equal, round. Sclerae is anicteric. LUNGS: Clear to auscultation. No wheezes or rhonchi. No intercostal re tractions. HEART: Regular rate and rhythm. Systolic murmur. ABDOMEN: Soft. Bowel sounds are present. No masses. No tenderness. EXTREMITIES: Trace pedal edema. No calf tenderness. NEUROLOGICAL: Patient is awake, alert and oriented x3. Cranial nerves 2 through 12 are grossly intact. - Labs CBC & Chem 7: 04/16/20 06:19 04/16/20 06:19 Labs: Abnormal Lab Results - Last 24 Hours (Table) 04/15/20 04/15/20 04/16/20 Range/Units 16:32 20:53 06:00 RBC (3.80-5.40) m/uL Hgb (11.4-16.0) gm/dL Hct (34.0-46.0) % MCHC (31.0-37.0) g/dL BUN (7-17) mg/dL Creatinine (0.52-1.04) mg/dL Glucose (74-99) mg/dL POC Glucose (mg/dL) 150 H 192 H 144 H (75-99) mg/dL 04/16/20 04/16/20 04/16/20 Range/Units 06:19 06:19 11:37 RBC 3.47 L (3.80-5.40) m/uL Hgb 10.4 L (11.4-16.0) gm/dL Hct 33.8 L (34.0-46.0) % MCHC 30.9 L (31.0-37.0) g/dL BUN 43 H (7-17) mg/dL Creatinine 2.07 H (0.52-1.04) mg/dL Glucose 124 H (74-99) mg/dL POC Glucose (mg/dL) 175 H (75-99) mg/dL Microbiology - Last 24 Hours (Table) 04/11/20 13:18 Blood Culture - Preliminary Blood No Growth after 96 hours Assessment and Plan Plan: Assessment and plan: #1 Acute heart failure, most likely systolic, awaiting echocardiogram #2 Hypertension #3 Acute kidney injury with chronic kidney disease stage III #4 Probable non-ST elevated myocardial infarction #5 Diabetes mellitus type 2 #6 Hyperlipidemia #7 History of lung nodules Plan Patient was seen in consultation by nephrology and cleared for discharge home today. We will hold the oral Lasix for 2 days, check lytes BUN and creatinine in 3 days, follow-up appointment in the office. DNP note has been reviewed, I agree with a documented findings and plan of care. Patient was seen and examined.
[2020-04-16] MEDS ORDERED: predniSONE 20 MG TAB PO STA (17:28)
[2020-04-16] MEDS ORDERED: FAMOTIDINE 20 MG/2 ML VIAL IV SCH ×2 (21:00)
--- NOTE | 2020-04-16 23:38 | P.DS ---
Providers Date of admission: 04/11/20 15:06 Attending physician: Tyrone Rick Consults: 04/11/20 15:05 Consult Physician Routine Consulting Provider: [facility] Consult Reason/Comments: Acute pulmonary edema Do you want consulting provider notified?: Yes 04/15/20 21:32 Consult Physician Routine Consulting Provider: Romelia Aguirre Reason/Comments: grisel Do you want consulting provider notified?: Yes Primary care physician: Rodrigo Gann Hospital Course: Diagnoses: Acute CHF with evidence of interstitial edema, leg swelling and elevated BNP level. Acute hypoxic respiratory failure secondary to CHF Elevated troponin level likely due to CHF. Less likely non-ST elevated AL Acute kidney injury likely due to diuresis, improving Cardiomegaly Hypertensive urgency Diabetes type 2 [id number] Diabetic neuropathy and retinopathy Recently patient was found to have left lung nodules. Being monitored. Underdevelopment of kidney. Osteoarthritis Hyperlipidemia Obesity with BMI 30.0 Leukocytosis likely reactive. Rule out infection. Elevated d-dimer level with no evidence of pulmonary embolism. Hyperglycemia with uncontrolled diabetes type 2 Hospital course: this is a pleasant 79 years old female who presented to the hospital on 04/11 for breathing difficulty. found to have acute CHF.also her blood pressure was on the high side on admission but now is better controlled at 141/99. Cardiology service evaluated the patient, she was treated with diuretics Kajal her symptoms significantly improved and she is breathing quietly and saturating 93-98% on room air. Her Lasix and lisinopril were held for trending up creatinine from 1.0 to 2.4, currently her creatinine improved to 2.0. 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 And recommended to keep hold Lasix for now. CTA of the chest was negative for PE. On the day of discharge patient symptoms are controlled and she denies chest pain or dyspnea. No abdominal pain. No nausea vomiting. No fever Patient was cleared for discharge by nephrology and cardiology service Patient will need to follow up as an outpatient and appointment was made for her with her PCP Dr. Gann on 04/18, I called Dr. Gann and discussed the case with him including the recommendation for checking her creatinine as an outpatient and restarting Lasix as 40 mg daily as per commissioning manager recommendation. Problems and management plan were discussed with the patient and he verbalized understanding and acceptance Patient was found stable and can be discharged home however he needs follow-up as an outpatient. Patient was instructed to follow up with PCP Dr. Gann within one week and patient agrees, appointments made for the patient on 04/18. Also appointments made for the patient's with Dr. Caceres on 04/26 (See examination of from same-day note) Time spent more than 35 minutes Plan - Discharge Summary Discharge Rx Participant: No New Discharge Prescriptions: New hydrALAZINE HCL [Apresoline] 50 mg PO TID #90 tab Isosorbide Mononitrate ER [Imdur] 60 mg PO DAILY #30 tab.er.24h Atorvastatin [Lipitor] 40 mg PO DAILY #30 tab Continue Ergocalciferol [Vitamin D2 (DRISDOL)] 50,000 unit PO Q14D Folic Acid 1 mg PO DAILY Allopurinol [Zyloprim] 300 mg PO DAILY glipiZIDE [Glucotrol] 12.5 mg PO HS glipiZIDE XL [Glucotrol XL] 10 mg PO AC-BRKFST Magnesium Oxide 400 mg PO TID Lisinopril [Zestril] 10 mg PO DAILY Lisinopril [Zestril] 20 mg PO HS Ferrous Sulfate [Iron (65 MG Elemental)] 325 mg PO DAILY Sodium Bicarbonate Tab 650 mg PO BID Aspirin [Adult Low Dose Aspirin EC] 81 mg PO DAILY Discontinued amLODIPine [Norvasc] 5 mg PO DAILY Gabapentin [Neurontin] 300 mg PO BID Furosemide [Lasix] 20 mg PO BID Potassium Chloride ER [K-Dur 10] 10 meq PO DAILY Discharge Medication List Allopurinol [Zyloprim] 300 mg PO DAILY 04/11/20 [History] Aspirin [Adult Low Dose Aspirin EC] 81 mg PO DAILY 04/11/20 [History] Ergocalciferol [Vitamin D2 (DRISDOL)] 50,000 unit PO Q14D 04/11/20 [History] Ferrous Sulfate [Iron (65 MG Elemental)] 325 mg PO DAILY 04/11/20 [History] Folic Acid 1 mg PO DAILY 04/11/20 [History] Lisinopril [Zestril] 10 mg PO DAILY 04/11/20 [History] Lisinopril [Zestril] 20 mg PO HS 04/11/20 [History] Magnesium Oxide 400 mg PO TID 04/11/20 [History] Sodium Bicarbonate Tab 650 mg PO BID 04/11/20 [History] glipiZIDE XL [Glucotrol XL] 10 mg PO AC-BRKFST 04/11/20 [History] glipiZIDE [Glucotrol] 12.5 mg PO HS 04/11/20 [History] Atorvastatin [Lipitor] 40 mg PO DAILY #30 tab 04/16/20 [Rx] Isosorbide Mononitrate ER [Imdur] 60 mg PO DAILY #30 tab.er.24h 04/16/20 [Rx] hydrALAZINE HCL [Apresoline] 50 mg PO TID #90 tab 04/16/20 [Rx] Follow up Appointment(s)/Referral(s): [facility], [NON-STAFF] - Rodrigo Gann MD [Primary Care Provider] - 04/18/20 9:00 am Angel Elena DO [STAFF PHYSICIAN] - 04/26/20 2:00 pm (patient will have appointment with Ginny) Patient Instructions/Handouts: Heart Failure (DC), Heart Failure (GEN), Chronic Kidney Disease (GEN) Activity/Diet/Wound Care/Special Instructions: BMP and Mag labs done Thursday outpatient cleared by nephrology. Per Dr Elena - resume oral lasix on Thursday starting with 40 mg PO daily. Discharge Disposition: HOME WITH HOME HEALTH SERVICES
[2020-04-17] MEDS ORDERED: ALLOPURINOL 100 MG TAB PO SCH (09:00)
[2020-04-17] MEDS ORDERED: predniSONE 20 MG TAB PO SCH (09:00)
--- NOTE | 2020-04-20 12:43 | ECHOF ---
Referral Reason: MEASUREMENTS -------- HEIGHT: 129.5 cm WEIGHT: 90.3 kg BP: 166/68 RVIDd: 2.1 cm (< 3.3) IVSd: 1.6 cm (0.6 - 1.1) LVIDd: 4.4 cm (3.9 - 5.3) LVPWd: 1.7 cm (0.6 - 1.1) IVSs: 2.3 cm LVIDs: 2.2 cm LVPWs: 1.9 cm LAESV Index (A-L): 36.47 ml/m Ao Diam: 2.8 cm (2.0 - 3.7) AV Cusp: 2.0 cm (1.5 - 2.6) LA Diam: 3.7 cm (2.7 - 3.8) MV E Parviz: 1.12 m/s MV DecT: 193 ms MV A Parviz: 0.90 m/s MV E/A Ratio: 1.24 RAP: 15.00 mmHg RVSP: 20.65 mmHg FINDINGS -------- Sinus rhythm. This was a technically good study. The left ventricular size is normal. There is severe concentric left ventricular hypertrophy. Ove rall left ventricular systolic function is normal with, an EF between 55 - 60 %. Increased LAP. Gra de 2 Diastolic Dysfuntion. The right ventricle is normal in size. LA is moderately dilated 34-39 ml/m2 The right atrial size is normal. The aortic valve is trileaflet and appears structurally normal. The mitral valve is normal. [id number] mitral regurgitation is present. The tricuspid valve appears structurally normal. Mild tricuspid regurgitation present. Right vent ricular systolic pressure is normal at < 35 mmHg. There is no pulmonic regurgitation present. The aortic root size is normal. The inferior vena cava is mildly dilated. There is a small, generalized pericardial effusion present. CONCLUSIONS -------- 1. Sinus rhythm. 2. This was a technically good study. 3. The left ventricular size is normal. 4. There is severe concentric left ventricular hypertrophy. 5. Overall left ventricular systolic function is normal with, an EF between 55 - 60 %. 6. Increased LAP. Grade 2 Diastolic Dysfuntion. 7. The right ventricle is normal in size. 8. LA is moderately dilated 34-39 ml/m2 9. The right atrial size is normal. 10. The aortic valve is trileaflet and appears structurally normal. 11. The mitral valve is normal. 12. Evwjrrkn-wk-ephsux mitral regurgitation is present. 13. The tricuspid valve appears structurally normal. 14. Mild tricuspid regurgitation present. 15. Right ventricular systolic pressure is normal at < 35 mmHg. 16. There is no pulmonic regurgitation present. 17. The aortic root size is normal. 18. The inferior vena cava is mildly dilated. 19. There is a small, generalized pericardial effusion present. TOURIST AGENT: Lena Biggs RDCS
== END 2020-04-16 16:30 | disposition home health service (06) | DRG 280 ==
LOC: EC 11:02 → 3SCARD 15:06
PROVIDERS: ADMIT Internal Medicine; ATTEND Internal Medicine
DX: I13.0 Hypertensive heart and chronic kidney disease with heart failure and stage 1 through stage 4 chronic kidney disease, or unspecified chronic kidney disease (principal); I50.21 Acute systolic (congestive) heart failure; I21.4 Non-ST elevation (NSTEMI) myocardial infarction; J96.01 Acute respiratory failure with hypoxia; J98.11 Atelectasis; N17.9 Acute kidney failure, unspecified; Q60.5 Renal hypoplasia, unspecified; E11.319 Type 2 diabetes mellitus with unspecified diabetic retinopathy without macular edema; E11.22 Type 2 diabetes mellitus with diabetic chronic kidney disease; D72.829 Elevated white blood cell count, unspecified; E86.9 Volume depletion, unspecified; E11.42 Type 2 diabetes mellitus with diabetic polyneuropathy; N18.3 Chronic kidney disease, stage 3 (moderate); E11.65 Type 2 diabetes mellitus with hyperglycemia; I16.0 Hypertensive urgency; Z20.828 Contact with and (suspected) exposure to other viral communicable diseases; E78.5 Hyperlipidemia, unspecified; M19.90 Unspecified osteoarthritis, unspecified site; T50.2X5A Adverse effect of carbonic-anhydrase inhibitors, benzothiadiazides and other diuretics, initial encounter; R91.8 Other nonspecific abnormal finding of lung field; M25.551 Pain in right hip; E66.9 Obesity, unspecified; Z68.39 Body mass index [BMI] 39.0-39.9, adult; Z79.84 Long term (current) use of oral hypoglycemic drugs; Z79.82 Long term (current) use of aspirin; Z79.899 Other long term (current) drug therapy; Z71.3 Dietary counseling and surveillance; Z90.49 Acquired absence of other specified parts of digestive tract; Z98.890 Other specified postprocedural states; Z90.710 Acquired absence of both cervix and uterus; Z82.49 Family history of ischemic heart disease and other diseases of the circulatory system
CPT/HCPCS: 36415; 71045; 71275; 80048; 80053; 80061; 81003; 83036; 83605; 83735; 83880; 84484; 85025; 85027; 85379; 85610; 85730; 87040; 87324; 93005; 93306; 94640; 94660; 94760; 96372; 96374; 99291